=== PATIENT | male | born 1960 | race Caucasian/White ===

== ENCOUNTER → 2018-03-03 | Outpatient (CLI) | payer BC ==
[~2018-03-03] MED LIST: MULT-506 PO; PANT40TA PO
[2018-03-03 10:25] LABS: ALKALINE PHOSPHATASE 52 U/L (45-117); ALT/SGPT 26 U/L (12-78); AST/SGOT 18 U/L (15-37); BLOOD UREA NITROGEN 28 mg/dl (7-18); CALCIUM 8.4 mg/dl (8.5-10.1); CARBON DIOXIDE 27 mmol/L (21-32); CHOLESTEROL 203 mg/dl (0-200); CREATININE 1.05 mg/dl (0.60-1.40); GLUCOSE 85 mg/dl (70-99); LDL CHOLESTEROL CALCULATED 130 mg/dl; POTASSIUM 4.5 mmol/L (3.5-5.1); SODIUM 138 mmol/L (136-145)
[2018-03-03 10:32] LABS: HEMOGLOBIN A1C 5.6 % (4.5-5.6)
== END | disposition home or self-care (01) ==
LOC: C.LAB 07:39
PROVIDERS: ATTEND Urology
DX: N40.1 Benign prostatic hyperplasia with lower urinary tract symptoms (principal); R35.1 Nocturia

== ENCOUNTER → 2018-03-08 | Outpatient (CLI) | payer BC ==
--- NOTE | 2018-03-08 08:55 | DIAGNOSTIC IMAGING REPORT ---
ULTRASOUND KIDNEYS AND BLADDER CLINICAL HISTORY: Renal cyst. COMPARISON STUDY: Abdominal CT dated 06/12/2013. TECHNIQUE: Real-time, grayscale, and color flow sonography of the kidneys and bladder is performed. Images are reviewed in the transverse and longitudinal planes. FINDINGS: Kidneys: The kidneys are normal in size and echotexture. The right kidney measures 11.2 cm in length and the left kidney measures 11.8 cm in length. There is no hydronephrosis. No shadowing renal calculi are identified. There is a 1.7 cm cyst identified in the interpolar right kidney. There is no sonographic evidence of contour deforming renal mass lesion. No perinephric fluid is identified. Bladder: The bladder is normal in appearance. Bilateral ureteral jets were seen. IMPRESSION: 1. The kidneys are normal in size and without hydronephrosis. 2. The bladder is normal as imaged. 3. There is a 1.7 cm cyst in the interpolar right kidney. This was also seen on the [address] Electronically signed by: Enrico Mejía M.D. 03/08/2018 8:54 AM Dictated Date/Time: 03/08/2018 8:40 AM
== END | disposition home or self-care (01) ==
LOC: C.ULTR 08:05
PROVIDERS: ATTEND Urology
DX: N28.1 Cyst of kidney, acquired (principal)

== ENCOUNTER 2020-07-28 21:38 | Observation (INO) ==
[2020-07-28] MEDS ORDERED: SODIUM CHLORIDE 0.9% 1000ML 1,000 ML IV SCH (22:00)
--- NOTE | 2020-07-28 22:04 | Emergency Department Note ---
History of Present Illness General Chief complaint: Vertigo Stated complaint: PASSED OUT - HIT HEAD Time Seen by Provider: 07/28/20 21:44 Source: patient Mode of arrival: ambulatory Limitations: no limitations History of Present Illness This patient is a 60-year-old male who comes in after a syncopal episode. He said he did eat a big meal and had a small glass of wine. Watching TV when up to get go to the bathroom and passed out prior to going to the bathroom. He hit his head on the left frontal area but denies any significant headache. He denies any symptoms prior to falling but was diaphoretic afterwards. He had no recent illness. No chest pain or shortness of breath. Denies headache or neck pain. No numbness or weakness. No abdominal pain. No blood or melena in his stool. He did take a Hytrin this afternoon which he takes from time to time. Home Medications Medication Instructions Recorded Confirmed Type alfuzosin 10 mg tablet,extended 10 mg PO DAILY #30 tab 05/22/19 07/28/20 Rx release 24 hr losartan 50 mg PO DAILY 07/28/20 07/28/20 History metoprolol succinate 12.5 mg PO DAILY 07/28/20 07/28/20 History multivitamin 1 tab PO DAILY 07/28/20 07/28/20 History Allergies Allergy/AdvReac Type Severity Reaction Status Date / Time No Known Allergies Allergy Mild Unverified 07/28/20 23:19 Past Med/Surg History Social History Smoking Status: Never smoker Preferred Language: Greek Feels Safe at Home: Yes Immunizations: Past medical historyPACs/PVCs follows with Dr. Seun Willingham. Hypertension. Denies diabetes. He recently ran out of his omeprazole that he takes for GERD. 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 Review of Systems A total of 10 systems reviewed and were otherwise negative Physical Exam Vital Signs Vital Signs - 24 hr 07/28/20 21:40 07/28/20 21:58 07/28/20 22:39 Temperature 36.9 C Temperature Source Oral Pulse Rate 89 Pulse Rate [Apical] 75 Respiratory Rate 18 18 Respiratory Effort / Characteristics Non-Labored Respiratory Depth Normal Normal Blood Pressure 144/89 H Blood Pressure [Right Arm] 118/81 Blood Pressure Mean 107 Blood Pressure Mean [Right Arm] 93 Pulse Oximetry 97 98 Oxygen Delivery Method Room Air Room Air Room Air Sepsis Recent Fever Within 48 Hours No Sepsis New/Unexplained Change in Mental Status N/A Sepsis Action Taken by Nursing No Action Required General: Well developed well nourished middle-age male who is alert and orient x3 with normal speech and appears in no acute distress, breathing comfortably on room air. HEENT: Normal cephalic atraumatic. Pupils are equal round and reactive to light. Extraocular movements are intact. Oropharynx is pink with moist mucous membranes. No swelling of the mouth lips or tongue. Neck: Supple with a midline trachea. No meningeal signs or stiffness, no JVD or bruits. No Stridor. Chest: Clear to auscultation bilaterally. No wheezes or rhonchi. No increased work of breathing. Heart: Regular rate and rhythm without murmurs or gallops. Abdomen: Soft nontender, nondistended without rebound guarding or rigidity. Extremities: No cyanosis clubbing or edema. No calf tenderness or assymetry Spine/Back. Non tender to palpation. No CVA tenderness Skin: Good turgor without rashes. Neurologic exam: Cranial nerves two through 12 are intact. Motor and sensation are intact and symmetrical throughout. No tremor. Finger-nose intact. No pronator drift. Course Administered Medications Discontinued Medications Sodium Chloride (Nss 1000ml) 1,000 mls @ 999 mls/hr IV .Q1H1M [facility] Stop: 07/28/20 23:00 Last Infusion: 07/28/20 23:22 Dose: 0 mls/hr Documented by: [id number] Admin: 07/28/20 22:11 Dose: 999 mls/hr Documented by: [id number] Medical Decision Making Differential Diagnosis Syncope, arrhythmia, vasovagal, electrolyte or metabolic abnormality, dehydration, trauma, neurologic process, anemia, Covid Medical Records Attestation: I reviewed the patient's medical records. Home Medications Current Medication List: was personally reviewed by me Laboratory Data Attestation: I reviewed the patient's lab results. Result diagrams: 07/28/20 22:05 07/28/20 22:05 Lab Results 07/28/20 07/28/2020 Range/Units 22:05 22:05 22:45 WBC 8.96 (4.8-10.8) K/uL RBC 4.72 (4.7-6.1) M/uL Hgb 15.1 (14.0-18.0) g/dL Hct 44.3 (42-52) % MCV 93.9 (80-100) fL MCH 32.0 (25-34) pg MCHC 34.1 (32-36) g/dL RDW Std Deviation 46.3 (36.4-46.3) fL RDW Coeff of Shaneka 13.4 (11.5-14.5) % Plt Count 282 (130-400) K/uL MPV 9.2 (7.4-10.4) fL Immature Gran % (Auto) 0.1 % Neut % (Auto) 78.1 % Lymph % (Auto) 17.0 % Tillman % (Auto) 3.7 % Eos % (Auto) 1.0 % Baso % (Auto) 0.1 % Neut # (Auto) 7.00 H (1.4-6.5) K/uL Lymph # (Auto) 1.52 (1.2-3.4) K/uL Tillman # (Auto) 0.33 (0.11-0.59) K/uL Eos # (Auto) 0.09 (0-0.5) K/uL Baso # (Auto) 0.01 (0-0.2) K/uL Immature Gran # (Auto) 0.01 (0.00-0.02) K/uL Sodium 140 (136-145) mmol/L Potassium 4.2 (3.5-5.1) mmol/L Chloride 105 (98-107) mmol/L Carbon Dioxide 27 (21-32) mmol/L Anion Gap 8.0 (3-11) BUN 36 H (7-18) mg/dl Creatinine 1.45 H (0.6-1.4) mg/dl Est Cr Clr Drug Dosing 63.5 ml/min Est GFR ( Amer) 59.8 Est GFR (Non-Af Amer) 51.6 BUN/Creatinine Ratio 24.6 H (10-20) Glucose 114 H (70-99) mg/dl Calcium 9.2 (8.5-10.1) mg/dl Magnesium 2.0 (1.8-2.4) mg/dl Total Bilirubin 0.4 (0.2-1) mg/dl AST 25 (15-37) U/L ALT 39 (12-78) U/L Alkaline Phosphatase 67 (45-117) U/L Troponin I < 0.015 (0-0.045) ng/ml Total Protein 7.6 (6.4-8.2) gm/dl Albumin 4.0 (3.4-5.0) gm/dl Globulin 3.6 (2.5-4.0) gm/dl Albumin/Globulin Ratio 1.1 (0.9-2) TSH 1.900 (0.300-4.500) uIu/ml Urine Color Yellow Urine Appearance Clear (Clear) Urine pH 7.5 (4.5-7.5) Ur Specific Shafter 1.024 (1.000-1.030) Urine Protein Negative (Negative) Urine Glucose (UA) Negative (Negative) Urine Ketones Trace H (Negative) Urine Blood Negative (Negative) Urine Nitrite Negative (Negative) Urine Bilirubin Negative (Negative) Urine Urobilinogen Negative (Negative) Ur Leukocyte Esterase Negative (Negative) SARS-CoV-2 Ag (Rapid) (Negative) 07/29/20 Range/Units 00:04 WBC (4.8-10.8) K/uL RBC (4.7-6.1) M/uL Hgb (14.0-18.0) g/dL Hct (42-52) % MCV (80-100) fL MCH (25-34) pg MCHC (32-36) g/dL RDW Std Deviation (36.4-46.3) fL RDW Coeff of Shaneka (11.5-14.5) % Plt Count (130-400) K/uL MPV (7.4-10.4) fL Immature Gran % (Auto) % Neut % (Auto) % Lymph % (Auto) % Tillman % (Auto) % Eos % (Auto) % Baso % (Auto) % Neut # (Auto) (1.4-6.5) K/uL Lymph # (Auto) (1.2-3.4) K/uL Tillman # (Auto) (0.11-0.59) K/uL Eos # (Auto) (0-0.5) K/uL Baso # (Auto) (0-0.2) K/uL Immature Gran # (Auto) (0.00-0.02) K/uL Sodium (136-145) mmol/L Potassium (3.5-5.1) mmol/L Chloride (98-107) mmol/L Carbon Dioxide (21-32) mmol/L Anion Gap (3-11) BUN (7-18) mg/dl Creatinine (0.6-1.4) mg/dl Est Cr Clr Drug Dosing ml/min Est GFR ( Amer) Est GFR (Non-Af Amer) BUN/Creatinine Ratio (10-20) Glucose (70-99) mg/dl Calcium (8.5-10.1) mg/dl Magnesium (1.8-2.4) mg/dl Total Bilirubin (0.2-1) mg/dl AST (15-37) U/L ALT (12-78) U/L Alkaline Phosphatase (45-117) U/L Troponin I (0-0.045) ng/ml Total Protein (6.4-8.2) gm/dl Albumin (3.4-5.0) gm/dl Globulin (2.5-4.0) gm/dl Albumin/Globulin Ratio (0.9-2) TSH (0.300-4.500) uIu/ml Urine Color Urine Appearance (Clear) Urine pH (4.5-7.5) Ur Specific Shafter (1.000-1.030) Urine Protein (Negative) Urine Glucose (UA) (Negative) Urine Ketones (Negative) Urine Blood (Negative) Urine Nitrite (Negative) Urine Bilirubin (Negative) Urine Urobilinogen (Negative) Ur Leukocyte Esterase (Negative) SARS-CoV-2 Ag (Rapid) Negative (Negative) Imaging Data Attestation: I personally reviewed and interpreted this imaging study as follows: My Impression: Chest x-rayno acute infiltrate, failure, pneumothorax. There is some cardiomegaly. Radiologist's Impression: Head CTno intracranial hemorrhage or depressed skull fracture. Paranasal nasal sinus disease ECG Data Attestation: I personally reviewed and interpreted this ECG as follows: Indication: + syncope Rate (beats per minute): 83 Rhythm: + normal sinus ECG Intervals/blocks: + Normal QRS, + Normal QT and + Normal [place] ECG [place]: + Normal ECG ST segments: + Normal ST segments ECG Findings: no PACs and no PVCs Comparison ECG Date: from (09/16/18) Change: no significant change MDM Narrative This patient comes in as described above. He had a syncopal episode in the bathroom. IV access was established and he was hydrated with a 1 L IV normal saline bolus. He feels better at present. EKG was obtained as well as chest x- ray and head CT. Multiple blood testing was obtained he was reassessed frequently. He has no fever white count discussed infection there is no anemia. EKG does not suggest acute coronary syndrome or arrhythmia. There is nothing to suggest Brugada syndrome or prolonged QT interval. There is nothing to suggest hypertrophic cardiomyopathy or ischemia or heart block. His BUN and creatinine are mildly elevated and it could be that this is prerenal as he does have some ketones. He also tells me that he was on a liquid diet a couple weeks ago for presumed diverticulitis. He may have been dehydrated and also the Hytrin use that may have caused in the pass out. He was hydrated here. I do think he needs to be admitted/observe for further cardiac evaluation. I have consulted Dr. Knight to see him in the ER for these measures. Continuous cardiac monitoring: An order was placed in the EMR for continuous cardiac monitoring. He was noted to have normal sinus rhythm with a rate of 89. Impression & Plan Syncope, Dehydration, COVID-19 ruled out by laboratory testing, Acute renal insufficiency Discharge Plan Visit Data Chief Complaint: Vertigo Stated Complaint: PASSED OUT - HIT HEAD ED Provider: Ivan Chau Discharge Problem: Syncope, Dehydration, COVID-19 ruled out by laboratory testing, Acute renal insufficiency Forms Stand Alone Forms: My [facility] [employer] Prescriptions Prescriptions: No Action alfuzosin 10 mg tablet extended release 24 hr 10 mg PO DAILY Qty: 30 RF: 11 losartan 25 mg tablet 50 mg PO DAILY RF: 0 metoprolol succinate 25 mg tablet extended release 24 hr 12.5 mg PO DAILY RF: 0 multivitamin Tablet 1 tab PO DAILY RF: 0 Discharge Problem: Syncope Qualifiers: Syncope type: unspecified Qualified Code(s): R55 - Syncope and collapse
[2020-07-28 22:17] LABS: Basophils # (auto) 0.01 K/uL (0-0.2); Basophils % (auto) 0.1 %; Eosinophils # (auto) 0.09 K/uL (0-0.5); Hematocrit (blood only) 44.3 % (42-52); Hemoglobin 15.1 g/dL (14.0-18.0); Immature Granulocytes # (auto) 0.01 K/uL (0.00-0.02); Immature Granulocytes % (auto) 0.1 %; Lymphocytes # (auto) 1.52 K/uL (1.2-3.4); Mean Corpuscular Hgb Conc 34.1 g/dL (32-36); Mean Corpuscular Volume 93.9 fL (80-100); Mean Platelet Volume 9.2 fL (7.4-10.4); Monocytes # (auto) 0.33 K/uL (0.11-0.59); Monocytes % (auto) 3.7 %; Neutrophils % (auto) 78.1 %; Platelet Count 282 K/uL (130-400); RDW Coefficient of Variation 13.4 % (11.5-14.5); RDW Standard Deviation 46.3 fL (36.4-46.3); Red Blood Count 4.72 M/uL (4.7-6.1); White Blood Count 8.96 K/uL (4.8-10.8)
[2020-07-28 22:36] LABS: Alanine Aminotransferase 39 U/L (12-78); Aspartate Aminotransferase 25 U/L (15-37); BUN Creatinine Ratio 24.6 (10-20); Blood Urea Nitrogen 36 mg/dl (7-18); Calcium 9.2 mg/dl (8.5-10.1); Carbon Dioxide 27 mmol/L (21-32); Chloride 105 mmol/L (98-107); Creatinine Clr Calc Pharmacy 63.5 ml/min; Est GFR (African American) 59.8; Est GFR (Non-African American) 51.6; Glucose 114 mg/dl (70-99); Potassium 4.2 mmol/L (3.5-5.1); Sodium 140 mmol/L (136-145)
[2020-07-28 22:47] LABS: Albumin Globulin Ratio 1.1 (0.9-2); Alkaline Phosphatase 67 U/L (45-117); Bilirubin,Total 0.4 mg/dl (0.2-1); Globulin 3.6 gm/dl (2.5-4.0); Total Protein 7.6 gm/dl (6.4-8.2); Troponin I < 0.015 ng/ml (0-0.045)
[2020-07-28 23:00] LABS: Appearance Urine Clear (Clear); Bilirubin Urine Negative (Negative); Blood Urine Negative (Negative); Color Urine Yellow; Glucose Urine UA Negative (Negative); Ketones Urine Trace (Negative); Leukocyte Esterase Urine Negative (Negative); Nitrite Urine Negative (Negative); Protein Urine Negative (Negative); Specific Gravity Urine 1.024 (1.000-1.030); Urobilinogen Urine Negative (Negative); pH Urine 7.5 (4.5-7.5)
[2020-07-29] MEDS ORDERED: ACETAMINOPHEN 325 MG TAB PO PRN ×2 (02:06→08:03)
[2020-07-29] MEDS ORDERED: SODIUM CHLORIDE 0.9% 1000ML 1,000 ML IV SCH (02:06)
[2020-07-29] MEDS ORDERED: NITROGLYCERIN SL 0.4 MG/TAB TAB SL PRN (02:06)
--- NOTE | 2020-07-29 02:31 | History and Physical Report ---
DATE OF ADMISSION: 07/29/2020 CHIEF COMPLAINT: Syncope. HISTORY OF PRESENT ILLNESS: A 60-year-old male with past medical history significant for hypertension, history of PACs, history of right renal cyst, history of chronic back pain, history of diverticulitis of colon, who presents with episode of syncope. The patient had dinner and also a glass of wine and went to bathroom, suddenly collapsed. Next, he was found on the floor, hit on the left side of his forehead, was sweating. No biting of tongue, no incontinence. Checked his pulse, was somewhat low, on his phone; checked his EKG, it looked okay. He has never had an episode of syncope in the past, so came to the hospital for evaluation, workup is negative so far. The patient states he had an episode of diverticulitis about a month ago and he was treated with oral antibiotics for 1 week and was eating only liquid diet and only 1 week ago he started to go back on his regular diet. He takes alpha-1 julia alfuzosin for his BPH once in a while. He did not take it for last 1 month since diverticulitis and he took 1 dose today afternoon. Currently resting comfortably and hemodynamically stable. Denies any chest pain. No shortness of breath, no cough, no fever, no chills. Currently, no headache, no blurred visions, no earache, no runny nose, no sore throat, no loss of sense of smell or taste. No dysphagia, no nausea, no abdominal pain. Normal bowel and bladder movements. No swelling in the legs, no rash. ALLERGIES: No known drug allergies. PAST MEDICAL HISTORY: As mentioned above. PAST SURGICAL HISTORY: Tonsillectomy. MEDICATIONS: The patient is on losartan 50 mg p.o. daily, Toprol-XL 12.5 mg p.o. daily, multivitamin 1 tablet daily, alfuzosin 10 mg p.o. daily. FAMILY HISTORY: Significant for mother has heart disease; father has hypertension and bladder cancer; mother has hypertension. SOCIAL HISTORY: . No smoking. Alcohol 6 glasses of red wine per week. No drug use. REVIEW OF SYSTEMS: As per HPI. Rest of the review of systems negative. PHYSICAL EXAMINATION: GENERAL: The patient is of moderate build, not in acute distress. VITAL SIGNS: Temperature 36.9, pulse 75, respiratory rate 18, blood pressure 118/81, oxygen 98% on room air. HEENT: Pupils equal, round, reactive to light. Oral mucosa moist. NECK: No JVD, no neck masses, no carotid bruits. CARDIOVASCULAR: S1, S2 heard, regular rate and rhythm, no murmur, no gallop. RESPIRATORY SYSTEM: Normal AP diameter. No accessory muscle use. No wheezing, no crackles. ABDOMEN: Soft, bowel sounds present, nontender, no distention. CENTRAL NERVOUS SYSTEM: Cranial nerves II-XII grossly intact, nonfocal. EXTREMITIES: No edema, no erythema. LABORATORY DATA: WBC 8.9, hemoglobin 15.1, hematocrit 44.3, platelets 282. Sodium 140, potassium 4.2, chloride 105, bicarbonate 27, BUN 36, creatinine 1.45, serum glucose 114, calcium 9.2, magnesium 2, total bilirubin 0.4, AST 25, ALT 39, alkaline phosphatase 67. Troponin I less than 0.015. TSH 1.9. Urinalysis, trace ketones. SARS-CoV-2 rapid antigen test negative. IMAGING: CT of the head, preliminary report, no acute findings. Chest x-ray, no acute findings. EKG: Normal sinus rhythm, rate of 83, Q-waves in inferior leads. ASSESSMENT AND PLAN: This 60-year-old male presents with syncope. 1. Syncope, could be vasovagal, could be from dehydration and taking of alfuzosin. EKG and troponins are unremarkable. We will monitor in the tele floor for any dysrhythmias. No seizure activity. We will follow serial enzymes, echocardiogram, and consult cardiology in a.m. for further recommendations. Will start on fluids. 2. Acute kidney injury: Presently with creatinine of 1.45, BUN 36, baseline creatinine seems to be around 1, most likely secondary to dehydration. The patient recently had diverticulitis and was eating liquid diet only, started taking regular diet about 1 week ago. Getting fluids. We will follow the labs in a.m. Hold losartan. 3. Hypertension: Continue metoprolol succinate with holding parameters. Holding losartan. Will follow blood pressure. 4. History of PACs: On Toprol-XL. 5. History of benign prostatic hypertrophy: Follows with urology. Takes alfuzosin as needed, will hold it for now. 6. Deep vein thrombosis prophylaxis: Sequential compression devices. DISPOSITION: Closely monitor, observation in med tele. Level 1 full code. Expect to discharge home and follow with family doctor. MICHELLE
[2020-07-29 05:18] LABS: Basophils # (auto) 0.01 K/uL (0-0.2); Basophils % (auto) 0.1 %; Eosinophils # (auto) 0.09 K/uL (0-0.5); Eosinophils % (auto) 1.3 %; Hematocrit (blood only) 40.3 % (42-52); Hemoglobin 13.5 g/dL (14.0-18.0); Immature Granulocytes # (auto) 0.01 K/uL (0.00-0.02); Immature Granulocytes % (auto) 0.1 %; Lymphocytes # (auto) 1.71 K/uL (1.2-3.4); Mean Corpuscular Hemoglobin 31.5 pg (25-34); Mean Corpuscular Hgb Conc 33.5 g/dL (32-36); Mean Corpuscular Volume 93.9 fL (80-100); Mean Platelet Volume 8.9 fL (7.4-10.4); Monocytes # (auto) 0.47 K/uL (0.11-0.59); Monocytes % (auto) 6.9 %; Neutrophils # (auto) 4.54 K/uL (1.4-6.5); Neutrophils % (auto) 66.6 %; Platelet Count 268 K/uL (130-400); RDW Coefficient of Variation 13.5 % (11.5-14.5); RDW Standard Deviation 46.3 fL (36.4-46.3); Red Blood Count 4.29 M/uL (4.7-6.1); White Blood Count 6.83 K/uL (4.8-10.8)
[2020-07-29 05:42] LABS: BUN Creatinine Ratio 26.2 (10-20); Calcium 8.2 mg/dl (8.5-10.1); Creatinine Clr Calc Pharmacy 83.7 ml/min; Est GFR (African American) 83.5; Est GFR (Non-African American) 72.1; Magnesium 2.2 mg/dl (1.8-2.4); Potassium 4.3 mmol/L (3.5-5.1)
--- NOTE | 2020-07-29 06:50 | CT Scan Report ---
CT head/brain wo con CLINICAL HISTORY: 60 years-old Male with syncope. Acute syncope TECHNIQUE: Multiple axial CT images of the head were obtained without contrast. A dose lowering tech nique was utilized adhering to the principles of ALARA. CT DOSE: 614.27 mGy.cm COMPARISON: None. FINDINGS: No acute intracranial hemorrhage, midline shift, intracranial mass, hydrocephalus, territorial ischem ia or abnormal extra-axial collection. The calvarium is intact. Mild to moderate mucosal thickening of the ethmoid air cells with partially imaged mucosal thickening of the inferior right maxillary sinus. Mastoid air cells are clear. IMPRESSION: No acute intracranial abnormality. ACT 112: Negative or not required by law. The above report was generated using voice recognition software. It may contain grammatical, syntax o r spelling errors. Electronically signed by: Lam Rubi M.D. 07/29/2020 6:49 AM
--- NOTE | 2020-07-29 07:45 | XRay Report ---
XR chest 1V portable HISTORY: syncope COMPARISON: Chest 09/16/2008. FINDINGS: The lungs are clear. Cardiac silhouette is normal in size. No pleural effusions. No pneumot horax. Moderate degenerative changes within the left shoulder. IMPRESSION: No acute process. ACT 112: Negative or not required by law. Electronically signed by: Teofilo Rodriguez M.D. 07/29/2020 7:44 AM
--- NOTE | 2020-07-29 08:38 | Hospitalist Progress Note ---
Date of Service July 29, 2020 Assessment & Plan (1) Syncope: Acute Kidney Injury on admission secondary to dehydration -as per ED notes on 07/28/2020 "patient is a 60-year-old male who comes in after a syncopal episode. He said he did eat a big meal and had a small glass of wine. Watching TV when up to get go to the bathroom and passed out prior to going to the bathroom. He hit his head on the left frontal area but denies any significant headache. He denies any symptoms prior to falling but was diaphoretic afterwards. He had no recent illness. No chest pain or shortness of breath. Denies headache or neck pain. No numbness or weakness. No abdominal pain. No blood or melena in his stool. He did take a Hytrin this afternoon which he takes from time to time." -admission creatinine of 1.45 and BUN 36 suggests dehydration at home. after IV fluids from ED presentation and into 07/03/2020 morning the creatinine 1.1 and BUN 29 by AM labs -patient can be monitored off IV fluids while in the hospital for now Hypertension -admitting physician have held off losartan 50 mg so far. Holding losartan today appears to be reasonable after recent syncopal event. After discussing with patient about back blood pressure medication going forward, he would prefer taking 25 mg losartan daily and self monitor blood pressure and follow with primary care doctor History of PACs -on metoprolol 12.5 mg daily -echocardiogram has been performed on 07/29/2020 in regards to the syncope workup, follow cardiology service evaluation Benign prostatic hypertrophy -admitting physician have held off this medication for now. again this is a reasonable step the day after syncope a home. can consider consider resuming this home medication subsequently and have patient either self monitor as outpatient and follow up with primary care physician or urologist Admission and Anticipated Discharge Date Admission Date: July 29, 2020 Subjective On exam, patient is alert and oriented. No current symptoms of dizziness or acute headache. No apparent bruising of the head. no vertigo symptoms. no nausea. no vomiting. afebrile. no chest pain. no abdomen pain. no other current symptoms on review of systems Review of Systems Review of Systems: All systems reviewed & are unremarkable except as noted in Subjective Physical Exam Constitutional: comfortable Eyes: PERRL, conjunctivae normal, anicteric sclerae EOM intact bilaterally ENMT: external ear and nose normal, oropharynx normal Neck: normal visual inspection Respiratory: normal respiratory effort, lungs clear to auscultation Cardiovascular: Rate/Rhythm: regular rhythm Gastrointestinal (Abdomen): normal bowel sounds, soft, nontender, no hepatosplenomegaly Musculoskeletal: Head/Neck/Chest: normocephalic and head atraumatic Neurologic: PERRL, EOMI, accommodation nl, no face palsy, no dysarthria CN' s II-XI intact bilaterally and moves all extremities Psychiatric: A+Ox3, euthymic affect Results & Data Results & Data ([facility]) Vital Signs (Past 12 Hours) Vital Signs Temp Pulse Pulse Resp BP BP Pulse Ox 07/29/20 02:52 78 07/29/20 02:31 36.9 C 75 21 137/89 97 07/29/20 01:45 72 18 119/70 98 07/29/20 01:44 36.9 C 76 15 119/70 97 07/29/20 01:00 78 18 129/82 98 07/28/20 22:39 75 18 118/81 98 07/28/20 21:40 36.9 C 89 18 144/89 H 97 (1) Syncope Syncope type: unspecified Qualified Code(s): R55 - Syncope and collapse
--- NOTE | 2020-07-29 08:48 | Cardiology Consultation ---
Date of Consultation July 29, 2020 Assessment & Plan (1) Syncope: (2) Dehydration: (3) Acute renal insufficiency: 60-year-old patient presents for evaluation of syncope. Suspect syncopal episode related to hypotension in the setting of volume depletion, mild alcohol intake, and use of Hytrin. 2D echocardiogram reveals preserved LV systolic function with normal wall motion. Stable mild mitral regurgitation noted. No sustained dysrhythmias on telemetry overnight. Encourage patient to maintain adequate hydration. He will only use Hytrin in the evenings. Avoid NSAID use. 14-day outpatient ZIO monitor ordered. Cardiology follow-up in 2-3 weeks. History of Present Illness Reason for Consultation: Syncope Requesting Physician: Dr. Knight Attending Physician: Shamir Rose MD History of Present Illness 60-year-old patient admitted with syncope. History of hypertension, premature atrial complexes, borderline mitral valve prolapse with mild mitral regurgitation, and BPH. Preliminary review of bedside 2D transthoracic echocardiogram demonstrates pr eserved LV systolic function, no regional wall motion abnormalities, mild mitral regurgitation with mild diastolic dysfunction. Reports syncopal episode occurring last evening. Patient had been working all day at his cabin. Sanding and staying the floor. Drank 1 beer after completing the task. Then ate a large meal with 1 glass of wine. Admits to taking dose of Hytrin in the a.m. due to concerns regarding urinary frequency wall working throughout the day. This is unusual for him. He had not taken a dose of Hytrin in nearly 30 days. Reports recent episode of diverticulitis 1 month ago prompting soft/liquid diet for more than 1 week. In the evening, patient had dozed off while watching a football game. He awoke and stood up to use the bathroom. He does not recall any lightheadedness, dizziness, chest discomfort, or palpitations. He woke up on the floor of his bathroom. Struck the left side of his forehead without significant contusion or abrasion. Upon awakening, patient assessed his heart rhythm via "[employer]" and checked blood pressure. Heart rhythm was sinus with PVCs. Blood pressure approximately 105 / 70s. Mild diaphoresis involving his forearms noted. Denies incontinence, tongue biting, or postictal state. The event was not witnessed. Denies prior history of syncope. No recent exertional chest discomfort, palpitations, unusual shortness of breath, or decline in functional capacity. Patient evaluated in the ER. ECG unchanged. Lab testing suggests volume depletion. No dysrhythmias on telemetry overnight. Allergies Allergy/AdvReac Type Severity Reaction Status Date / Time No Known Allergies Allergy Mild Unverified 07/28/20 23:19 Home Medications Medication Instructions Recorded Confirmed Type metoprolol succinate 12.5 mg PO DAILY 07/28/20 07/28/20 History multivitamin 1 tab PO DAILY 07/28/20 07/28/20 History losartan 25 mg PO DAILY 30 Days #30 tab 07/29/20 Rx tamsulosin 0.4 mg PO DAILY 30 Days #30 cap 07/29/20 Rx Patient History Social History Smoking Status: Never smoker Hx Alcohol Use: Yes Alcohol type: wine Hx Substance Use: No Preferred Language: Uzbek Communication Ability: Effective Coal Bagger Required: No Beliefs That Will Affect Care: None Current Living Situation: Spouse Other Information That Helps Us Care for You: No Feels Safe at Home: Yes Safety Concerns: Feels Safe At This Time Assistive Devices: None Review of Systems Review of Systems: All systems reviewed & are unremarkable except as noted in HPI & below Physical Exam Constitutional: well developed and well nourished; no acute distress and not ill appearing Respiratory: normal respiratory effort, lungs clear to auscultation Au scultation: no crackles, no rales, no rhonchi and no wheezes Cardiovascular: Rate/Rhythm: regular rate and regular rhythm Heart Sounds: normal S1, normal S2 and + murmur (soft, 1/6 midsystolic murmur heard best at the left ventricular apex) Vessels: no JVD and no carotid bruit Extremities: no edema Gastrointestinal (Abdomen): Inspection/Auscultation: abdomen normal to insp ection and normal bowel sounds; abdomen not distended Percussion/Palpation: abdomen soft; abdomen nontender, no guarding and abdomen not rigid Skin: no rashes, warm and dry Neurologic: CN's II-XI intact bilaterally and moves all extremities; no focal motor deficits Motor/Sensory: no tremor Psychiatric: A+Ox3, euthymic affect Results & Data ([facility]) Vital Signs (Past 12 Hours) Vital Signs Temp Pulse Pulse Resp BP BP Pulse Ox 07/29/20 02:52 78 07/29/20 02:31 36.9 C 75 21 137/89 97 07/29/20 01:45 72 18 119/70 98 07/29/20 01:44 36.9 C 76 15 119/70 97 07/29/20 01:00 78 18 129/82 98 07/28/20 22:39 75 18 118/81 98 07/28/20 21:40 36.9 C 89 18 144/89 H 97 Diagnostic Findings Exercise stress echo report summary 09/13/2018: The stress echo is negative for inducible ischemia. Exercise capacity is above average . Resting Study: The qualitative LV ejection fraction is 55-59% (normal). The left ventricular diastolic function is mildly abnormal (grade I). There is borderline posterior mitral leaflet prolapse. Mild mitral regurgitation is present. The aortic root is borderline enlarged. (1) Syncope Syncope type: unspecified Qualified Code(s): R55 - Syncope and collapse
[2020-07-29] MEDS ORDERED: MULTIVITAMIN TAB PO SCH (09:00)
[2020-07-29] MEDS ORDERED: PANTOprazole 40 MG TAB PO SCH (09:00)
[2020-07-29] MEDS ORDERED: METOPROLOL SUCC 25MG EXT REL TAB PO SCH (09:00)
[2020-07-29] MEDS ORDERED: LOSARTAN POTASSIUM 50 MG TAB PO SCH (09:00)
--- NOTE | 2020-07-29 10:09 | Discharge Summary ---
Date of Service July 29, 2020 Admission HPI Per Admitting Provider HISTORY OF PRESENT ILLNESS: A 60-year-old male with past medical history significant for hypertension, history of PACs, history of right renal cyst, history of chronic back pain, history of diverticulitis of colon, who presents with episode of syncope. The patient had dinner and also a glass of wine and went to bathroom, suddenly collapsed. Next, he was found on the floor, hit on the left side of his forehead, was sweating. No biting of tongue, no incontinence. Checked his pulse, was somewhat low, on his phone; checked his EKG, it looked okay. He has never had an episode of syncope in the past, so came to the hospital for evaluation, workup is negative so far. The patient states he had an episode of diverticulitis about a month ago and he was treated with oral antibiotics for 1 week and was eating only liquid diet and only 1 week ago he started to go back on his regular diet. He takes alpha-1 julia alfuzosin for his BPH once in a while. He did not take it for last 1 month since diverticulitis and he took 1 dose today afternoon. Currently resting comfortably and hemodynamically stable. Denies any chest pain. No shortness of breath, no cough, no fever, no chills. Currently, no headache, no blurred visions, no earache, no runny nose, no sore throat, no loss of sense of smell or taste. No dysphagia, no nausea, no abdominal pain. Normal bowel and bladder movements. No swelling in the legs, no rash. Principal Diagnosis Syncope Acute Kidney Injury on admission secondary to dehydration Hypertension benign prostatic hypertrophy Discharge Exam Constitutional comfortable Eyes PERRL, conjunctivae normal, anicteric sclerae EOM intact bilaterally ENMT external ear and nose normal, oropharynx normal Neck normal visual inspection Respiratory normal respiratory effort, lungs clear to auscultation Cardiovascular Rate/Rhythm: regular rhythm Gastrointestinal (Abdomen) normal bowel sounds, soft, nontender, no hepatosplenomegaly Musculoskeletal Head/Neck/Chest: normocephalic and head atraumatic Neurologic PERRL, EOMI, accommodation nl, no face palsy, no dysarthria CN's II-XI intact bilaterally and moves all extremities Psychiatric A+Ox3, euthymic affect Discharge Data Allergies Allergy/AdvReac Type Severity Reaction Status Date / Time No Known Allergies Allergy Mild Unverified 07/28/20 23:19 Consultations 07/28/20 23:43 ED Decision to Admit Stat 07/29/20 08:00 Consult Cardiology Routine Ordered Studies 07/28/20 21:57 CT head/brain wo con Stat Hospital Course (1) Syncope: Acute Kidney Injury on admission secondary to dehydration -as per ED notes on 07/28/2020 "patient is a 60-year-old male who comes in after a syncopal episode. He said he did eat a big meal and had a small glass of wine. Watching TV when up to get go to the bathroom and passed out prior to going to the bathroom. He hit his head on the left frontal area but denies any significant headache. He denies any symptoms prior to falling but was diaphoretic afterwards. He had no recent illness. No chest pain or shortness of breath. Denies headache or neck pain. No numbness or weakness. No abdominal pain. No blood or melena in his stool. He did take a Hytrin this afternoon which he takes from time to time." -admission creatinine of 1.45 and BUN 36 suggests dehydration at home. after IV fluids from ED presentation and into 07/03/2020 morning the creatinine 1.1 and BUN 29 by AM labs -cardiology service: 2D transthoracic echocardiogram demonstrates preserved LV systolic function, no regional wall motion abnormalities, mild mitral regurgitation with mild diastolic dysfunction -after discussion with cardiology, patient prefers the hospital discharge History of PACs -on metoprolol 12.5 mg daily -echocardiogram has been performed on 07/29/2020 in regards to the syncope workup, follow cardiology service evaluation Hypertension Benign prostatic hypertrophy discharge to home Patient will follow up with outpatient doctor and outpatient ZIO patch discharge medication sent electronically to [facility] [facility] [place] [id number] of lowered dose losartan as 25 mg daily and tamsulosin 0.4 mcg daily to replace the home medication of alfuzosin Total Time Total Time Spent Total Time Spent (In Minutes): 30 Total Time Includes: Examination of the Patient, Discharge Planning, Medication Reconciliation and Communication With Other Providers Discharge Plan Discharge Items Patient Disposition: Home - Self-Care Reason For Visit: SYNCOPE Discharge Diagnosis: Syncope Acute Kidney Injury on admission secondary to dehydration Hypertension benign prostatic hypertrophy Condition on Discharge: Good Activity: Per Instructions section Weightbearing: Full weightbearing Non-emergency contact: Primary Care Provider Call non-emergency contact if: you have any medication questions Follow-up/Referrals: Beau Montanez MD [Primary Care Provider] - Diet: Regular Addtl Attending Provider Instructions: discharge to home Patient will follow up with outpatient doctor and outpatient ZIO patch discharge medication sent electronically to [facility] [place] [address] of lowered dose losartan as 25 mg daily and tamsulosin 0.4 mcg daily to replace the home medication of alfuzosin Pending Studies at Discharge: No Stand-Alone Forms: My [facility] [place] [employer], Smoking Cessation Medications and DC Order Prescriptions: New tamsulosin 0.4 mg capsule 0.4 mg PO DAILY 30 Days Qty: 30 RF: 0 losartan 25 mg tablet 25 mg PO DAILY 30 Days Qty: 30 RF: 0 Continued metoprolol succinate 25 mg tablet extended release 24 hr 12.5 mg PO DAILY RF: 0 multivitamin Tablet 1 tab PO DAILY RF: 0 Discontinued alfuzosin 10 mg tablet extended release 24 hr 10 mg PO DAILY Qty: 30 RF: 11 losartan 25 mg tablet 50 mg PO DAILY RF: 0 Discharge Orders: Discharge Order (Routine); Ordered 07/29/20 Ordered By: Shamir Rose Admission Data Admit Date/Time: 07/29/20 02:02 Attending Provider: Shamir Rose Admit Provider: Barney Knight Primary Care Provider: Beau Montanez Other Providers: Andrea Wagoner ; Federico Odell ; Shane Fernandez ; Seun Willingham ; Andrews Butler ; Donald Henderson ; Garrett Zepeda ; India Alvarez ; Sherly العراقي ; Binh Donaldson
--- NOTE | 2020-07-29 18:29 | Electrocardiogram Report ---
Test Reason : Blood Pressure : / mmHG Vent. Rate : 083 BPM Atrial Rate : 083 BPM P-R Int : 148 ms QRS Dur : 074 ms QT Int : 376 ms P-R-T Axes : 031 -03 032 degrees QTc Int : 441 ms Normal sinus rhythm Inferior infarct , age undetermined Abnormal ECG When compared with ECG of 16-SEP-2008 14:27, Inferior infarct is now Present Confirmed by Trever Marin ([id number]) on 07/29/2020 6:29:03 PM Referred By: REFERRED SELF Confirmed By:Uday aMrin
== END 2020-07-29 10:54 | disposition home or self-care (01) ==
LOC: 1E 21:38 → ED 21:38 → 1E 07-29 01:45 → SUATTDRO 07-29 02:02

== ENCOUNTER 2025-01-27 10:07 | Observation (INO) ==
[2025-01-27 10:39] LABS: Basophils # (auto) 0.02 K/uL (0.00-0.20); Basophils % (auto) 0.5 %; Eosinophils # (auto) 0.15 K/uL (0.00-0.50); Eosinophils % (auto) 3.4 %; Hemoglobin 14.5 g/dl (14.0-18.0); Immature Granulocytes # (auto) 0.01 K/uL (0.01-0.20); Immature Granulocytes % (auto) 0.2 %; Lymphocytes # (auto) 1.58 K/uL (1.20-3.40); Lymphocytes % (auto) 36.1 %; Mean Corpuscular Hemoglobin 31.7 pg (25.0-34.0); Mean Corpuscular Hgb Conc 33.7 g/dL (32.0-36.0); Mean Corpuscular Volume 93.9 fL (80.0-100.0); Mean Platelet Volume 8.9 fL (9.4-12.4); Monocytes # (auto) 0.31 K/uL (0.11-0.59); Monocytes % (auto) 7.1 %; Neutrophils # (auto) 2.31 K/uL (1.40-6.50); Neutrophils % (auto) 52.7 %; Platelet Count 269 K/uL (130-400); RDW Coefficient of Variation 13.1 % (11.5-14.5); RDW Standard Deviation 45.1 fL (36.4-46.3); Red Blood Count 4.58 M/uL (4.70-6.10); White Blood Count 4.38 K/ul (4.8-10.8)
[2025-01-27] MEDS: MECLIZINE HCL 25 MG TAB PO STA (10:55)
[2025-01-27] MEDS: SODIUM CHLORIDE 0.9% 500 ML IV ONE (10:55)
[2025-01-27] MEDS: ONDANSETRON INJ 2 MG/ML 2 ML VIAL IV STA ×2 (10:55→12:08)
[2025-01-27 11:01] LABS: Albumin Globulin Ratio 1.5 (0.9-2); BUN Creatinine Ratio 28.4 (10-20); Bilirubin,Total 0.6 mg/dl (0.2-1.0); Creatinine Clr Calc Pharmacy 85.4 ml/min; Globulin 2.8 gm/dl (2.5-4.0); Potassium 4.2 mmol/L (3.5-5.1); Total Protein 6.9 gm/dl (6.0-8.3)
[2025-01-27 11:07] LABS: Troponin I High Sensitivity 6.2 pg/ml (0-20)
[2025-01-27] MEDS: OPTIRAY 320 125ml IV ONE (11:16)
--- NOTE | 2025-01-27 11:55 | CT Scan Report ---
CT angio head wo/w, CT angio neck with con CLINICAL HISTORY: 65 years-old Male with vertigo, vomiting. Acute vertigo with nausea and vomiting COMPARISON STUDY: Head CT 07/28/2020 TECHNIQUE: Unenhanced axial CT scan of the brain is performed. Subsequently, following the IV adminis tration of 117 cc of Optiray, CT angiogram of the head and neck was performed from the skull base to the vertex. Images are reviewed in the axial, sagittal, and coronal planes. 3-D MIPS images are creat ed and assessed. IV contrast was administered without complication. All measurements were obtained ac cording to NASCET criteria. A dose lowering technique was utilized adhering to the principles of WILFRIDO Joe. CT DOSE: 1191.62 mGy.cm FINDINGS: CT BRAIN: There is no acute intracranial hemorrhage, midline shift, hydrocephalus, intracranial mass, territori al ischemia or abnormal extra-axial collections. No abnormal intra-axial or extra-axial enhancement. Mastoid air cells and middle ear cavities are clear. No calvarial fracture. Minimal mucosal thickeni ng of the ethmoid air cells and frontal sinuses. 2.5 cm focus of polypoid mucosal thickening noted wi thin the right maxillary sinus. CT ANGIOGRAM OF THE HEAD AND NECK: Three-vessel morphology of the thoracic aortic arch. Patent common and internal carotid arteries. The re is moderate atherosclerosis of the right carotid bulb without significant stenosis. The internal c arotid arteries are patent. The bilateral anterior and middle cerebral arteries are also patent. Vertebral arteries are patent. Diminutive basilar artery with origin of the right posterior cer ebral artery. There is moderately diminished flow within the P2 segment left posterior cerebral arter y compared to the right without discrete high-grade stenosis identified. There is no aneurysm, high-g rade stenosis, or proximal branch occlusion identified. Dural sinuses appear patent. The lung apices appear clear. 8 mm hyperdense left-sided thyroid nodule. Degenerative changes of the cervical spine. IMPRESSION: 1. No acute intracranial abnormality identified. 2. There is diminished flow within the left posterior cerebral artery P2 segment compared to the righ t without discrete high-grade stenosis or arterial occlusion identified 3. Otherwise unremarkable CTA of the head and neck. ACT 112: Negative or not required by law. The above report was generated using voice recognition software. It may contain grammatical, syntax o r spelling errors. Electronically signed by: Darrius Rubi M.D. 01/27/2025 11:53 AM
[2025-01-27] MEDS: LORazepam 2 MG/1 ML VIAL IV STA (12:07)
[2025-01-27] MEDS: FAMOTIDINE 20MG IV PUSH 20 MG/5 ML SYR IV STA (12:07)
[2025-01-27] MEDS: methylPREDNISolone 125 MG/2 ML VIAL IV STA (12:07)
[2025-01-27] MEDS: SODIUM CHLORIDE 0.9% 1,000 ML IV ONE (12:08)
--- NOTE | 2025-01-27 13:46 | Magnetic Resonance Report ---
MR brain wo con HISTORY: 65 years-old Male P2 segment acute severe vertigo with altered mental status COMPARISON: CTA of the head of same day TECHNIQUE: Multiplanar multisequence MRI of the brain was obtained without IV contrast FINDINGS: No restricted diffusion to suggest an acute or subacute infarct. Midline structures appear unremarkab le. Degenerative changes of the imaged cervical spine. No acute intracranial hemorrhage, midline shif t, abnormal extra-axial collection, hydrocephalus or intra-axial mass. Minimal involutional changes. There are a few scattered punctate T2/FLAIR hyperintense foci within the white matter likely represen ting early chronic microvascular ischemic disease. Cerebral venous sinuses and major arterial flow voids appear patent. Skull, orbits and soft tissues a re unremarkable. Mastoid air cells are clear. Mild to moderate mucosal thickening of the paranasal si nuses. 2.3 cm right maxillary sinus polyp. IMPRESSION: No acute intracranial abnormality. No acute or subacute infarct. ACT 112: Negative or not required by law. The above report was generated using voice recognition software. It may contain grammatical, syntax o r spelling errors. Electronically signed by: Darrius Rubi M.D. 01/27/2025 1:45 PM
--- NOTE | 2025-01-27 14:44 | Emergency Department Note ---
Impression & Plan Benign paroxysmal positional vertigo ED Provider Note CHIEF COMPLAINT: Vertigo HISTORY OF PRESENT ILLNESS: This 65-year-old male patient with past medical history of prostatic hypertrophy, diverticulitis presents emergency department with complaints of sudden onset of dizziness and vomiting. The patient states he was in his usual state of health, sat down to play the piano and had sudden onset of spinning, nausea and vomiting. Patient vomited 4-5 times at home. He was not able to get the symptoms under control. The patient has no history of prior. He denies any recent illnesses. He states he had 2 alcoholic drinks last evening, but did not feel intoxicated. He denies any recent chest pain, shortness of breath. He denies any unilateral weakness, speech difficulties and confusion. REVIEW OF SYSTEMS: A review of systems was performed with positives and pertinent negatives listed in the history of present illness. 10 systems were reviewed and are otherwise negative. ALLERGIES: see below MEDICATIONS: see below PMH: see below SOCIAL HISTORY: see below DDx: Vertigo, intracranial hemorrhage, intracranial mass, dehydration, metabolic abnormality, stroke among others. PHYSICAL EXAM: Vital signs reviewed. General: Well-appearing 65-year-old male, in some discomfort, but no distress. HEENT: No scleral icterus or conjunctival injection, PERRLA, neck supple. Atraumatic. TMs are clear bilaterally. Cardiovascular: Regular rate and rhythm, no extra sounds. Pulmonary: Clear to auscultation bilaterally, normal work of breathing. Abdomen: Soft, nontender, nondistended, positive bowel sounds. Musculoskeletal: Atraumatic, no peripheral edema. Neurologic: Patient awake alert and oriented x 3, speech is clear. Equal strength in all 4 extremities, negative pronator drift, intact [id number]. Cranial nerves II through XII are grossly intact. Minimal nystagmus, concern for vertical nystagmus although not reproducible. No horizontal nystagmus appreciated. Skin: Warm, dry, no rash EMERGENCY DEPARTMENT COURSE/MDM: This patient was evaluated and appeared to be in some discomfort. IV access was obtained and laboratory work was drawn. The patient was medicated with 4 mg of IV Zofran and 25 mg of meclizine by mouth. He was hydrated with normal saline solution. EKG reveals no evidence of acute ischemia. CT and CT angiogram were performed of the head and neck and reveals diminished blood flow within the left posterior cerebral artery P2 segment compared with the right without discrete high-grade stenosis or arterial occlusion. On my reevaluation, the patient continued to be symptomatic. He did receive additional IV Zofran, IV Ativan and 60 mg of IV Solu-Medrol. Laboratory work is reassuring, Lyme test is negative. Given his leukopenia, the babesiosis and Anaplasma testing was ordered and is pending. Patient seem to be having significant improvement and was prepared for discharge home. Upon sitting up to get dressed, he promptly vomited and had reoccurrence of symptoms. I discussed the plan with the patient and his , he will be evaluated by the hospitalist service for admission and further management. He is expressed understanding and agrees. MONITORING: An order for cardiac monitoring was placed and the patient is noted to be in a sinus bradycardia at 58 beats per minute. RADIOLOGY: CT/CTA of the head and neck: IMPRESSION: 1. No acute intracranial abnormality identified. 2. There is diminished flow within the left posterior cerebral artery P2 segment compared to the right without discrete high-grade stenosis or arterial occlusion identified 3. Otherwise unremarkable CTA of the head and neck. EKG: To my interpretation reveals a sinus bradycardia at 55 bpm, normal ST segments. QTc of 413. No PAC, no PVC. DISPOSITION: Home Past Med/Surg History Problem List Symptomatic PVCs Nausea & vomiting Benign paroxysmal positional vertigo (Acute) Bilateral inguinal hernia History of diverticulitis Left lower quadrant pain Renal cyst BPH (benign prostatic hyperplasia) Medical History Acute renal insufficiency COVID-19 ruled out by laboratory testing Dehydration Syncope Social History Smoking Status: Never smoker Hx Alcohol Use: Yes Alcohol type: beer and hard liquor Hx Substance Use: No Preferred Language: Irish Communication Ability: Effective Department Head Required: No Beliefs That Will Affect Care: None Current Living Situation: Spouse Other Information That Helps Us Care for You: No Feels Safe at Home: Yes Safety Concerns: Feels Safe At This Time Assistive Devices: None Allergies Allergies Allergy/AdvReac Type Severity Reaction Status Date / Time lisinopril Allergy Intermediate Cough Unverified 01/27/25 12:48 Home Meds Home Medications Medication Instructions Recorded Confirmed celecoxib 200 mg capsule (Celebrex) 200 mg PO DAILY PRN Pain 06/10/21 01/27/25 metoprolol succinate 25 mg 12.5 mg PO BID 06/10/21 01/27/25 tablet,extended release 24 hr losartan 25 mg tablet 25 mg PO QAM 01/27/25 01/27/25 Previous Rx's Medication Instructions Recorded meclizine 25 mg tablet 25 mg PO TID PRN vertigo #45 tabs 01/27/25 ondansetron 4 mg disintegrating 4 mg PO Q6H PRN nausea and 01/27/25 tablet vomiting #20 tabs prednisone 20 mg tablet 40 mg (2 x 20 mg) PO DAILY 4 days 01/27/25 #8 tabs Results & Data (ED) Vital Signs Vital Signs - 24 hr 01/27/25 10:14 01/27/25 10:25 01/27/25 10:25 Temperature 36.4 C L Temperature Source Oral Pulse Rate 59 L 62 Pulse Rate [Apical] 61 Respiratory Rate 20 13 19 Respiratory Effort / Characteristics Non-Labored Spontaneous Respiratory Depth Normal Respiratory Pattern Regular Blood Pressure 154/90 H Blood Pressure [Right Arm] 155/94 H Blood Pressure Mean 111 Blood Pressure Mean [Right Arm] 114 Pulse Oximetry 99 99 100 Oxygen Delivery Method Room Air Room Air Room Air Sepsis Recent Fever Within 48 Hours No Sepsis New/Unexplained Change in Mental Status N/A Sepsis Action Taken by Nursing No Action Required 01/27/25 10:26 01/27/25 10:46 01/27/25 12:33 Temperature Temperature Source Pulse Rate 58 L Pulse Rate [Apical] 58 L Respiratory Rate 15 Respiratory Effort / Characteristics Respiratory Depth Respiratory Pattern Blood Pressure Blood Pressure [Right Arm] 141/80 H Blood Pressure Mean Blood Pressure Mean [Right Arm] 100 Pulse Oximetry 100 99 Oxygen Delivery Method Room Air Room Air Sepsis Recent Fever Within 48 Hours Sepsis New/Unexplained Change in Mental Status Sepsis Action Taken by Nursing 01/27/25 15:04 Temperature Temperature Source Pulse Rate Pulse Rate [Apical] 56 L Respiratory Rate 18 Respiratory Effort / Characteristics Non-Labored Spontaneous Respiratory Depth Normal Respiratory Pattern Blood Pressure Blood Pressure [Right Arm] 156/92 H Blood Pressure Mean Blood Pressure Mean [Right Arm] 113 Pulse Oximetry 98 Oxygen Delivery Method Room Air Sepsis Recent Fever Within 48 Hours Sepsis New/Unexplained Change in Mental Status Sepsis Action Taken by Group Home Medications Current Medication List: was personally reviewed by me Laboratory Data Attestation: I reviewed the patient's lab results. 01/28/25 06:58 01/28/25 06:58 Lab Results 01/27/25 01/27/25 01/27/25 Range/Units 10:25 10:34 15:02 WBC 4.38 L (4.8-10.8) K/ul RBC 4.58 L (4.70-6.10) M/uL Hgb 14.5 (14.0-18.0) g/dl Hct 43.0 (42.0-52.0) % MCV 93.9 (80.0-100.0) fL MCH 31.7 (25.0-34.0) pg MCHC 33.7 (32.0-36.0) g/dL RDW Std Deviation 45.1 (36.4-46.3) fL RDW Coeff of Shaneka 13.1 (11.5-14.5) % Plt Count 269 (130-400) K/uL MPV 8.9 L (9.4-12.4) fL Immature Gran % (Auto) 0.2 % Neut % (Auto) 52.7 % Lymph % (Auto) 36.1 % [place] % (Auto) 7.1 % Eos % (Auto) 3.4 % Baso % (Auto) 0.5 % Neut # (Auto) 2.31 (1.40-6.50) K/uL Lymph # (Auto) 1.58 (1.20-3.40) K/uL [place] # (Auto) 0.31 (0.11-0.59) K/uL Eos # (Auto) 0.15 (0.00-0.50) K/uL Baso # (Auto) 0.02 (0.00-0.20) K/uL Immature Gran # (Auto) 0.01 (0.01-0.20) K/uL Sodium 140 (136-145) mmol/L Potassium 4.2 (3.5-5.1) mmol/L Chloride 105 (98-107) mmol/L Carbon Dioxide 26 (21-32) mmol/L Anion Gap 9 (3-11) BUN 29 H (6-23) mg/dl Creatinine 1.02 (0.6-1.4) mg/dl Est Cr Clr Drug Dosing 85.4 ml/min eGFR 81.06 BUN/Creatinine Ratio 28.4 H (10-20) Glucose 130 H (70-99(Fasting)) mg/dl POC Glucose 120 H (70-99) mg/dl Calcium 9.0 (8.6-10.3) mg/dl Magnesium 2.0 (1.7-2.4) mg/dl Total Bilirubin 0.6 (0.2-1.0) mg/dl AST 21 (13-39) U/L ALT 19 (7-52) U/L Alkaline Phosphatase 54 (34-104) U/L Total Creatine Kinase 98 (30-223) U/L Troponin I High Sens 6.2 (0-20) pg/ml Total Protein 6.9 (6.0-8.3) gm/dl Albumin 4.1 (3.4-5.0) gm/dl Globulin 2.8 (2.5-4.0) gm/dl Albumin/Globulin Ratio 1.5 (0.9-2) Urine Color Yellow Urine Appearance Clear (Clear) Urine pH 6.0 (4.5-7.5) Ur Specific [place] > 1.045 H (1.000-1.030) Urine Protein Negative (Negative) Urine Glucose (UA) Negative (Negative) Urine Ketones Negative (Negative) Urine Blood Negative (Negative) Urine Nitrite Negative (Negative) Urine Bilirubin Negative (Negative) Urine Urobilinogen Negative (Negative) Ur Leukocyte Esterase Negative (Negative) Urine Comment Anaplasma Smear See Comment Babesia Smear See Comment Lyme Disease Screen Negative (Negative) Administered Medications Lactated Ringer's (Lr) 1,000 mls @ 125 mls/hr IV .Q8H SLAVA Stop: 01/28/25 09:00 Last Admin: 01/28/25 00:24 Dose: 125 mls/hr Documented By: Infusion: 01/27/25 23:52 Dose: Infused Documented By: Admin: 01/27/25 15:52 Dose: 125 mls/hr Documented By: INDIO Promethazine HCl (Phenergan) 12.5 mg in 50.5 mls @ 202 mls/hr IV Q8 PRN PRN Reason: Nausea And Vomiting Stop: 02/26/25 16:49 Last Infusion: 01/27/25 19:52 Dose: Infused Documented By: Admin: 01/27/25 19:34 Dose: 202 mls/hr Documented By: HARRY Meclizine HCl (Meclizine Hcl 25 Mg Tab) 25 mg PO TID SLAVA Stop: 02/26/25 20:59 Last Admin: 01/27/25 21:47 Dose: 25 mg Documented By: HARRY Metoprolol Succinate (Metoprolol Succ 25mg Ext Rel Tab) 12.5 mg PO BID SLAVA Stop: 02/26/25 20:59 Last Admin: 01/27/25 21:15 Dose: Not Given Documented By: HARRY Ondansetron HCl (Ondansetron Inj 2 Mg/Ml 2 Ml Vial) 4 mg IV Q8 SLAVA Stop: 02/26/25 21:59 Last Admin: 01/28/25 05:46 Dose: 4 mg Documented By: Admin: 01/27/25 21:17 Dose: 4 mg Documented By: HARRY Discontinued Medications Sodium Chloride (Nss) 500 mls @ 999 mls/hr IV .Q31M ONE Stop: 01/27/25 11:05 Last Infusion: 01/27/25 11:35 Dose: Infused Documented By: Admin: 01/27/25 10:55 Dose: 999 mls/hr Documented By: ZEV Sodium Chloride (Nss) 1,000 mls @ 999 mls/hr IV .Q1H1M ONE Stop: 01/27/25 12:53 Last Infusion: 01/27/25 12:58 Dose: Infused Documented By: Admin: 01/27/25 12:08 Dose: 999 mls/hr Documented By: NORMAN Famotidine (Pepcid 20mg Iv Push) 20 mg in 5 mls @ 2.5 mls/min IV NOW STA Stop: 01/27/25 11:58 Last Admin: 01/27/25 12:07 Dose: 2.5 mls/min Documented By: NORMAN Ioversol (Optiray 320 125ml) 117 ml IV ONCE ONE Stop: 01/27/25 11:17 Last Admin: 01/27/25 11:16 Dose: 117 ml Documented By: SADIE Lorazepam (Lorazepam 2 Mg/1 Ml Vial) 1 mg IV NOW STA Stop: 01/27/25 11:45 Last Admin: 01/27/25 12:07 Dose: 1 mg Documented By: NORMAN Meclizine HCl (Meclizine Hcl 25 Mg Tab) 25 mg PO NOW STA Stop: 01/27/25 10:40 Last Admin: 01/27/25 10:55 Dose: 25 mg Documented By: ZEV Methylprednisolone (Methylprednisolone 125 Mg/2 Ml Vial) 60 mg IV NOW STA Stop: 01/27/25 11:45 Last Admin: 01/27/25 12:07 Dose: 60 mg Documented By: NORMAN Ondansetron HCl (Ondansetron Inj 2 Mg/Ml 2 Ml Vial) 4 mg IV NOW STA Stop: 01/27/25 10:22 Last Admin: 01/27/25 10:55 Dose: 4 mg Documented By: ZEV Ondansetron HCl (Ondansetron Inj 2 Mg/Ml 2 Ml Vial) 4 mg IV NOW STA Stop: 01/27/25 11:45 Last Admin: 01/27/25 12:08 Dose: 4 mg Documented By: NORMAN Imaging Data Radiologist's Impression: Head CTA 01/27/25 10:34 CT angio head wo/w, CT angio neck with con CLINICAL HISTORY: 65 years-old Male with vertigo, vomiting. Acute vertigo with nausea and vomiting COMPARISON STUDY: Head CT 07/28/2020 TECHNIQUE: Unenhanced axial CT scan of the brain is performed. Subsequently, following the IV administration of 117 cc of Optiray, CT angiogram of the head and neck was performed from the skull base to the vertex. Images are reviewed in the axial, sagittal, and coronal planes. 3-D MIPS images are created and assessed. IV contrast was administered without complication. All measurements were obtained according to NASCET criteria. A dose lowering technique was utilized adhering to the principles of ALARA. CT DOSE: 1191.62 mGy.cm FINDINGS: CT BRAIN: There is no acute intracranial hemorrhage, midline shift, hydrocephalus, intracranial mass, territorial ischemia or abnormal extra-axial collections. No abnormal intra-axial or extra-axial enhancement. Mastoid air cells and middle ear cavities are clear. No calvarial fracture. Minimal mucosal thickening of the ethmoid air cells and frontal sinuses. 2.5 cm focus of polypoid mucosal thickening noted within the right maxillary sinus. CT ANGIOGRAM OF THE HEAD AND NECK: Three-vessel morphology of the thoracic aortic arch. Patent common and internal carotid arteries. There is moderate atherosclerosis of the right carotid bulb without significant stenosis. The internal carotid arteries are patent. The bilateral anterior and middle cerebral arteries are also patent. Vertebral arteries are patent. Diminutive basilar artery with origin of the right posterior cerebral artery. There is moderately diminished flow within the P2 segment left posterior cerebral artery compared to the right without discrete high-grade stenosis identified. There is no aneurysm, high-grade stenosis, or proximal branch occlusion identified. Dural sinuses appear patent. The lung apices appear clear. 8 mm hyperdense left-sided thyroid nodule. Degenerative changes of the cervical spine. IMPRESSION: 1. No acute intracranial abnormality identified. 2. There is diminished flow within the left posterior cerebral artery P2 segment compared to the right without discrete high-grade stenosis or arterial occlusion identified 3. Otherwise unremarkable CTA of the head and neck. ACT 112: Negative or not required by law. The above report was generated using voice recognition software. It may contain grammatical, syntax or spelling errors. Electronically signed by: Darrius Rubi M.D. 01/27/2025 11:53 AM Neck CTA 01/27/25 10:34 CT angio head wo/w, CT angio neck with con CLINICAL HISTORY: 65 years-old Male with vertigo, vomiting. Acute vertigo with nausea and vomiting COMPARISON STUDY: Head CT 07/28/2020 TECHNIQUE: Unenhanced axial CT scan of the brain is performed. Subsequently, following the IV administration of 117 cc of Optiray, CT angiogram of the head and neck was performed from the skull base to the vertex. Images are reviewed in the axial, sagittal, and coronal planes. 3-D MIPS images are created and assessed. IV contrast was administered without complication. All measurements were obtained according to NASCET criteria. A dose lowering technique was utilized adhering to the principles of ALARA. CT DOSE: 1191.62 mGy.cm FINDINGS: CT BRAIN: There is no acute intracranial hemorrhage, midline shift, hydrocephalus, intracranial mass, territorial ischemia or abnormal extra-axial collections. No abnormal intra-axial or extra-axial enhancement. Mastoid air cells and middle ear cavities are clear. No calvarial fracture. Minimal mucosal thickening of the ethmoid air cells and frontal sinuses. 2.5 cm focus of polypoid mucosal thickening noted within the right maxillary sinus. CT ANGIOGRAM OF THE HEAD AND NECK: Three-vessel morphology of the thoracic aortic arch. Patent common and internal carotid arteries. There is moderate atherosclerosis of the right carotid bulb without significant stenosis. The internal carotid arteries are patent. The bilateral anterior and middle cerebral arteries are also patent. Vertebral arteries are patent. Diminutive basilar artery with origin of the right posterior cerebral artery. There is moderately diminished flow within the P2 segment left posterior cerebral artery compared to the right without discrete high-grade stenosis identified. There is no aneurysm, high-grade stenosis, or proximal branch occlusion identified. Dural sinuses appear patent. The lung apices appear clear. 8 mm hyperdense left-sided thyroid nodule. Degenerative changes of the cervical spine. IMPRESSION: 1. No acute intracranial abnormality identified. 2. There is diminished flow within the left posterior cerebral artery P2 segment compared to the right without discrete high-grade stenosis or arterial occlusion identified 3. Otherwise unremarkable CTA of the head and neck. ACT 112: Negative or not required by law. The above report was generated using voice recognition software. It may contain grammatical, syntax or spelling errors. Electronically signed by: Darrius Rubi M.D. 01/27/2025 11:53 AM Brain MRI 01/27/25 12:16 MR brain wo con HISTORY: 65 years-old Male P2 segment acute severe vertigo with altered mental status COMPARISON: CTA of the head of same day TECHNIQUE: Multiplanar multisequence MRI of the brain was obtained without IV contrast FINDINGS: No restricted diffusion to suggest an acute or subacute infarct. Midline structures appear unremarkable. Degenerative changes of the imaged cervical spine. No acute intracranial hemorrhage, midline shift, abnormal extra-axial collection, hydrocephalus or intra-axial mass. Minimal involutional changes. There are a few scattered punctate T2/FLAIR hyperintense foci within the white matter likely representing early chronic microvascular ischemic disease. Cerebral venous sinuses and major arterial flow voids appear patent. Skull, orbits and soft tissues are unremarkable. Mastoid air cells are clear. Mild to moderate mucosal thickening of the paranasal sinuses. 2.3 cm right maxillary sinus polyp. IMPRESSION: No acute intracranial abnormality. No acute or subacute infarct. ACT 112: Negative or not required by law. The above report was generated using voice recognition software. It may contain grammatical, syntax or spelling errors. Electronically signed by: Darrius Rubi M.D. 01/27/2025 1:45 PM Discharge Plan Visit Data Chief Complaint: Dizziness Stated Complaint: DIZZINESS, HEART RATE-ARYTHMIA, VOMITING ED Provider: Fiordaliza Kaba Discharge Problem: Benign paroxysmal positional vertigo Patient Disposition: Home - Self-Care Condition: Good Discharge Instructions Interventions: ED Discharge Assessment Last Done: 01/27/25 17:15 Discharge Problem: Benign paroxysmal positional vertigo Qualifiers: Laterality: unspecified laterality Qualified Code(s): H81.10 - Benign paroxysmal vertigo, unspecified ear
[2025-01-27 15:16] LABS: Appearance Urine Clear (Clear); Bilirubin Urine Negative (Negative); Blood Urine Negative (Negative); Color Urine Yellow; Glucose Urine UA Negative (Negative); Ketones Urine Negative (Negative); Leukocyte Esterase Urine Negative (Negative); Nitrite Urine Negative (Negative); Protein Urine Negative (Negative); Specific Gravity Urine > 1.045 (1.000-1.030); Urobilinogen Urine Negative (Negative)
[2025-01-27] MEDS ORDERED: SODIUM CHLORIDE 0.9% 1,000 ML IV SCH (15:45)
[2025-01-27] MEDS: LACTATED RINGER'S 1,000 ML IV SCH (15:52)
--- NOTE | 2025-01-27 16:42 | History & Physical Report ---
Date of Service January 27, 2025 Assessment & Plan (1) Benign paroxysmal positional vertigo: Plan: -patient had horizontal nystagmus and abnormal head impulse testing (loses focus with head movement) suggestive of peripheral orgin of vertigo -MR head reassuring for no infarct, CTA neck shows diminished flow in left posterior cerebral artery P2 segment without evidence of stenosis -no loss of hearing, no tinnitus, no pain in ears -differential includes BPPV (most likely given symptoms), vertebrobasilar insufficiency (given CTA neck findings, but dizziness as only symptom makes seem less likely), recurrent vestibulopathy (less likely given duration), vestibular migraine (possible), less likely cervical spine infarct or late onset brain infarct Plan: -start scheduled meclizine and ondansetron for presumed BPPV -prn zofran for nausea/vomiting, promethazine for refractory symptoms -if symptoms do not improve by AM would consider neurology consult for consideration of vertebrobasilar insufficiency as stud driver of symptoms -PT/OT consults for Jr maneuver -LR maintenance fluids given struggling to eat at this time (2) Nausea & vomiting: Plan: -see above (3) Symptomatic PVCs: Plan: -could be contributing factor to lightheadedness Plan: -monitor on tele -continue metoprolol and losartan Plan I spent a total of 80 minutes in direct patient care, including [id number] time with the patient and/or family, reviewing medical records, ordering and reviewing diagnostic tests, and coordinating care with other healthcare providers. This time includes: history taking, physical examination, medical decision making, counseling, ECG interpretation, imaging interpretation, lab interpretation, orders, and education, excluding time spent in the performance of separately billed services. History of Present Illness Chief Complaint: -dizziness Primary Care Provider: Beau Montanez MD 65 yo male with pmhx frequent PVCs/PACs (follows with Del[facility] outpatient, last seen 2022), HTN, chronic back pain, mild mitral regurgitation who presents for sudden onset vertigo. Has no recent admissions at [facility] or [facility]. Patient seen and examined at bedside. present as well. Patient orthopaedic surgeon, very active at baseline. States that he was doing well at home today, sat down to play piano, and immediately the world began spinning. States the symptoms did not subside with rest. Complicated by nausea and vomiting. States he also felt very uneasy on his feet. States he is unable to tolerate PO at this time due to the symptoms. Symptoms improved mildly with medications but still has dizziness, nausea, vomiting. Denies SOB, chest pain, other associated symptoms. No tobacco use, mild alcohol use (1-2x per week), no drug use, full code, discussed with patient and . Allergies Allergy/AdvReac Type Severity Reaction Status Date / Time lisinopril Allergy Intermediate Cough Unverified 01/27/25 12:48 Home Medications Medication Instructions Recorded Confirmed Type celecoxib 200 mg capsule (Celebrex) 200 mg PO DAILY PRN Pain 06/10/21 01/27/25 History metoprolol succinate 25 mg 12.5 mg PO BID 06/10/21 01/27/25 History tablet,extended release 24 hr losartan 25 mg tablet 25 mg PO QAM 01/27/25 01/27/25 History meclizine 25 mg tablet 25 mg PO TID PRN vertigo #45 tabs 01/27/25 Rx ondansetron 4 mg disintegrating 4 mg PO Q6H PRN nausea and 01/27/25 Rx tablet vomiting #20 tabs prednisone 20 mg tablet 40 mg (2 x 20 mg) PO DAILY 4 days 01/27/25 Rx #8 tabs Past Med/Surg History Problem List Symptomatic PVCs Nausea & vomiting Benign paroxysmal positional vertigo (Acute) Bilateral inguinal hernia History of diverticulitis Left lower quadrant pain Renal cyst BPH (benign prostatic hyperplasia) Medical History Acute renal insufficiency COVID-19 ruled out by laboratory testing Dehydration Syncope Social History Smoking Status: Never smoker Hx Alcohol Use: Yes Alcohol type: wine Hx Substance Use: No Preferred Language: Lao Communication Ability: Effective Sql Server D[employer] Developer Required: No Beliefs That Will Affect Care: None Current Living Situation: Spouse Feels Safe at Home: Yes Assistive Devices: None Review of Systems Review of Systems: CONSTITUTIONAL: Patient denies fevers, chills, sweats and weight changes. EYES: Patient denies any visual symptoms. EARS, NOSE, AND THROAT: No difficulties with hearing. No symptoms of rhinitis or sore throat. CARDIOVASCULAR: Patient denies chest pains, palpitations, orthopnea and paroxysmal nocturnal dyspnea. RESPIRATORY: No dyspnea on exertion, no wheezing or cough. GI: nausea/vomiting : No urinary hesitancy or dribbling. No nocturia or urinary frequency. No abnormal urethral discharge. MUSCULOSKELETAL: No myalgias or arthralgias. NEUROLOGIC: dizziness PSYCHIATRIC: Patient denies problems with mood disturbance. No problems with anxiety. ENDOCRINE: No excessive urination or excessive thirst. DERMATOLOGIC: Patient denies any rashes or skin changes. Physical Exam Physical Exam: Gen: A&O 3 NAD HEENT: NCAT, EOMI, not icteric. External ears normal. No rhinorrhea. Moist mucous membranes. Neck: Supple, full range of motion, no observable masses, No meningeal sign. Lungs: No Respiratory distress. CV: RRR, no edema. Abdomen: Soft, nondistended, No rebound tenderness. MSK: No joint swelling, no redness. Skin: No rashes, petechiae, lesions. Normal color per patient. Neuro: Normal Gait, Grossly intact. Horizontal nystagmus noted, dizziness and loss of focus with head movement Psych: Appropriate for situation. Results & Data Results & Data Vital Signs (Past 12 Hours) Vital Signs Temp Pulse Pulse Resp BP BP Pulse Ox 01/27/25 15:04 56 L 18 156/92 H 98 01/27/25 12:33 58 L 15 141/80 H 99 01/27/25 10:46 58 L 01/27/25 10:26 100 01/27/25 10: 62 19 100 01/27/25 10:25 61 13 155/94 H 99 01/27/25 10:14 36.4 C L 59 L 20 154/90 H 99 O2 Del Method 01/27/25 15:04 Room Air 01/27/25 12:33 Room Air 01/27/25 10:46 01/27/25 10:26 Room Air 01/27/25 10:25 Room Air 01/27/25 10:25 Room Air 01/27/25 10:14 Room Air Laboratory Results -personally reviewed, no leukocytosis, creatinine at baseline Medications Administered Lactated Ringer's (Lr) 1,000 mls @ 125 mls/hr IV .Q8H SLAVA Stop: 01/28/25 09:00 Last Admin: 01/27/25 15:52 Dose: 125 mls/hr Documented By: CTK Code Status & VTE Plan Code Status -full code, discussed with patient and (1) Benign paroxysmal positional vertigo Laterality: unspecified laterality Qualified Code(s): H81.10 - Benign paroxysmal vertigo, unspecified ear
[2025-01-27] MEDS ORDERED: POLYETHYLENE (MIRALAX) 17 GM PACK PO PRN (18:10)
[2025-01-27] MEDS ORDERED: MELATONIN 3 MG TAB PO PRN (18:10)
[2025-01-27] MEDS ORDERED: ACETAMINOPHEN 325 MG TAB PO PRN (18:10)
--- NOTE | 2025-01-27 18:48 | Electrocardiogram Report ---
Test Reason : Blood Pressure : */* mmHG Vent. Rate : 55 BPM Atrial Rate : 55 BPM P-R Int : 172 ms QRS Dur : 84 ms QT Int : 432 ms P-R-T Axes : 9 47 0 degrees QTcB Int : 413 ms Sinus bradycardia Otherwise normal ECG When compared with ECG of 28-Jul-2020 21:58, Vent. rate has decreased by 28 bpm Confirmed by Trever Marin ([id number]) on 01/27/2025 6:48:00 PM Referred By: REFERRED SELF Confirmed By: Trever Marin
[2025-01-27] MEDS: PROMETHAZINE 12.5 MG/50.5 ML BAG IV PRN (19:34)
[2025-01-27] MEDS: METOPROLOL SUCC 25MG EXT REL TAB PO SCH (21:15)
[2025-01-27] MEDS: ONDANSETRON INJ 2 MG/ML 2 ML VIAL IV SCH (21:17)
[2025-01-27] MEDS: MECLIZINE HCL 25 MG TAB PO SCH (21:47)
[2025-01-28 07:20] LABS: Hematocrit (blood only) 40.1 % (42.0-52.0); Hemoglobin 13.6 g/dl (14.0-18.0); Mean Corpuscular Hemoglobin 32.2 pg (25.0-34.0); Mean Corpuscular Hgb Conc 33.9 g/dL (32.0-36.0); Mean Platelet Volume 9.1 fL (9.4-12.4); Platelet Count 267 K/uL (130-400); RDW Coefficient of Variation 13.2 % (11.5-14.5); RDW Standard Deviation 45.8 fL (36.4-46.3); Red Blood Count 4.22 M/uL (4.70-6.10); White Blood Count 11.73 K/ul (4.8-10.8)
[2025-01-28 07:35] LABS: BUN Creatinine Ratio 26.6 (10-20); Calcium 8.6 mg/dl (8.6-10.3); Creatinine Clr Calc Pharmacy 92.7 ml/min; Magnesium 1.9 mg/dl (1.7-2.4); Potassium 4.8 mmol/L (3.5-5.1)
[2025-01-28 08:54] VITALS: O2SAT 99
[2025-01-28] MEDS: LOSARTAN POTASSIUM 25 MG TAB PO SCH (09:27)
[2025-01-28 11:29] VITALS: BP 151/93; PULSE 51; RESP 18; TEMP 98.4
--- NOTE | 2025-01-28 11:32 | Hospitalist Progress Note ---
Date of Service January 28, 2025 Assessment & Plan (1) Benign paroxysmal positional vertigo: Plan: Vertigo Likely BPPV Patient had horizontal nystagmus and abnormal head impulse testing (loses focus with head movement) --MRI Brain:No acute intracranial abnormality. No acute or subacute infarct. --Head CTA:No acute intracranial abnormality identified. There is diminished flow within the left posterior cerebral artery P2 segment compared to the right without discrete high-grade stenosis or arterial occlusion identified. Otherwise unremarkable CTA of the head and neck. --Neck CTA:No acute intracranial abnormality identified. There is diminished flow within the left posterior cerebral artery P2 segment compared to the right without discrete high-grade stenosis or arterial occlusion identified. Otherwise unremarkable CTA of the head and neck. --Normal Orthostasis -- Appreciate neurology input --Advised to follow-up with ENT as outpatient --Received IV fluids -- Symptoms resolved --Continue meclizine as needed --Evaluated by PT --Plan to discharge home today (2) Nausea & vomiting: Plan: -see above (3) Symptomatic PVCs: Plan: Continue metoprolol Sinus bradycardia Likely secondary to metoprolol Currently asymptomatic Monitor Mild leukocytosis Likely reactive No obvious signs of infection Afebrile, Monitor Hypertension Blood pressure slightly variable likely situational Continue losartan, metoprolol Monitor blood pressure Code Status Full Code Disposition Home Admission and Anticipated Discharge Date Admission Date: January 27, 2025 Subjective Patient is seen and examined at bedside Dizziness/vertigo resolved Nausea improved as well Denies any chest pain, dyspnea, vomiting, dizziness Discussed with neurology today No other complaints Prefers to be discharged home today Review of Systems Review of Systems: All systems reviewed & are unremarkable except as noted in Subjective Physical Exam Physical Exam: Physical Exam: Vitals signs as noted above General Appearance:Moderately built and nourished, no apparent distress Head: normocephalic, Atraumatic Eyes: normal inspection, EOMI Neck: supple, Trachea midline Respiratory/Chest: Normal breath sounds, CTA, No accessory muscle use Cardiovascular: S1, S2, No murmur Abdomen/GI:Soft, Non tender, Bowel sounds present Extremities/Musculoskeletal:normal inspection, no edema Neurologic/Psych:AAOX3, grossly no focal neurological deficits Skin: normal color, warm Results & Data Results & Data Vital Signs (Past 12 Hours) Vital Signs Temp Pulse Pulse Resp BP Pulse Ox O2 Del Method 01/28/25 11:29 36.9 C 51 L 18 151/93 H 99 Room Air 01/28/25 08:53 36.7 C 49 L 16 130/75 99 Room Air 01/28/25 07:12 62 01/28/25 04:00 36.6 C 51 L 16 109/51 L 97 Room Air Laboratory Results Laboratory Results WBC 11.73 K/ul (4.8-10.8) H 01/28/25 06:58 RBC 4.22 M/uL (4.70-6.10) L 01/28/25 06:58 Hgb 13.6 g/dl (14.0-18.0) L 01/28/25 06:58 Hct 40.1 % (42.0-52.0) L 01/28/25 06:58 MCV 95.0 fL (80.0-100.0) 01/28/25 06:58 MCH 32.2 pg (25.0-34.0) 01/28/25 06:58 MCHC 33.9 g/dL (32.0-36.0) 01/28/25 06:58 RDW Std Deviation 45.8 fL (36.4-46.3) 01/28/25 06:58 RDW Coeff of Shaneka 13.2 % (11.5-14.5) 01/28/25 06:58 Plt Count 267 K/uL (130-400) 01/28/25 06:58 MPV 9.1 fL (9.4-12.4) L 01/28/25 06:58 Immature Gran % (Auto) 0.2 % 01/27/25 10:25 Neut % (Auto) 52.7 % 01/27/25 10:25 Lymph % (Auto) 36.1 % 01/27/25 10:25 [place] % (Auto) 7.1 % 01/27/25 10:25 Eos % (Auto) 3.4 % 01/27/25 10:25 Baso % (Auto) 0.5 % 01/27/25 10:25 Neut # (Auto) 2.31 K/uL (1.40-6.50) 01/27/25 10:25 Lymph # (Auto) 1.58 K/uL (1.20-3.40) 01/27/25 10:25 [place] # (Auto) 0.31 K/uL (0.11-0.59) 01/27/25 10:25 Eos # (Auto) 0.15 K/uL (0.00-0.50) 01/27/25 10:25 Baso # (Auto) 0.02 K/uL (0.00-0.20) 01/27/25 10:25 Immature Gran # (Auto) 0.01 K/uL (0.01-0.20) 01/27/25 10:25 Sodium 141 mmol/L (136-145) 01/28/25 06:58 Potassium 4.8 mmol/L (3.5-5.1) 01/28/25 06:58 Chloride 107 mmol/L (98-107) 01/28/25 06:58 Carbon Dioxide 30 mmol/L (21-32) 01/28/25 06:58 Anion Gap 4 (3-11) 01/28/25 06:58 BUN 25 mg/dl (6-23) H 01/28/25 06:58 Creatinine 0.94 mg/dl (0.6-1.4) 01/28/25 06:58 Est Cr Clr Drug Dosing 92.7 ml/min 01/28/25 06:58 eGFR 89.41 01/28/25 06:58 BUN/Creatinine Ratio 26.6 (10-20) H 01/28/25 06:58 Glucose 114 mg/dl (70-99(Fasting)) H 01/28/25 06:58 POC Glucose 120 mg/dl (70-99) H 01/27/25 10:34 Calcium 8.6 mg/dl (8.6-10.3) 01/28/25 06:58 Magnesium 1.9 mg/dl (1.7-2.4) 01/28/25 06:58 Total Bilirubin 0.6 mg/dl (0.2-1.0) 01/27/25 10:25 AST 21 U/L (13-39) 01/27/25 10:25 ALT 19 U/L (7-52) 01/27/25 10:25 Alkaline Phosphatase 54 U/L (34-104) 01/27/25 10:25 Total Creatine Kinase 98 U/L (30-223) 01/27/25 10:25 Troponin I High Sens 6.2 pg/ml (0-20) 01/27/25 10:25 Total Protein 6.9 gm/dl (6.0-8.3) 01/27/25 10:25 Albumin 4.1 gm/dl (3.4-5.0) 01/27/25 10:25 Globulin 2.8 gm/dl (2.5-4.0) 01/27/25 10:25 Albumin/Globulin Ratio 1.5 (0.9-2) 01/27/25 10:25 Urine Color Yellow 01/27/25 15:02 Urine Appearance Clear (Clear) 01/27/25 15:02 Urine pH 6.0 (4.5-7.5) 01/27/25 15:02 Ur Specific [place] > 1.045 (1.000-1.030) H 01/27/25 15:02 Urine Protein Negative (Negative) 01/27/25 15:02 Urine Glucose (UA) Negative (Negative) 01/27/25 15:02 Urine Ketones Negative (Negative) 01/27/25 15:02 Urine Blood Negative (Negative) 01/27/25 15:02 Urine Nitrite Negative (Negative) 01/27/25 15:02 Urine Bilirubin Negative (Negative) 01/27/25 15:02 Urine Urobilinogen Negative (Negative) 01/27/25 15:02 Ur Leukocyte Esterase Negative (Negative) 01/27/25 15:02 Urine Comment 01/27/25 15:02 Anaplasma Smear See Comment 01/27/25 10:25 Babesia Smear See Comment 01/27/25 10:25 Lyme Disease Screen Negative (Negative) 01/27/25 10:25 Impressions Head CTA 01/27/25 10:34 CT angio head wo/w, CT angio neck with con CLINICAL HISTORY: 65 years-old Male with vertigo, vomiting. Acute vertigo with nausea and vomiting COMPARISON STUDY: Head CT 07/28/2020 TECHNIQUE: Unenhanced axial CT scan of the brain is performed. Subsequently, following the IV administration of 117 cc of Optiray, CT angiogram of the head and neck was performed from the skull base to the vertex. Images are reviewed in the axial, sagittal, and coronal planes. 3-D MIPS images are created and assessed. IV contrast was administered without complication. All measurements were obtained according to NASCET criteria. A dose lowering technique was utilized adhering to the principles of ALARA. CT DOSE: 1191.62 mGy.cm FINDINGS: CT BRAIN: There is no acute intracranial hemorrhage, midline shift, hydrocephalus, intracranial mass, territorial ischemia or abnormal extra-axial collections. No abnormal intra-axial or extra-axial enhancement. Mastoid air cells and middle ear cavities are clear. No calvarial fracture. Minimal mucosal thickening of the ethmoid air cells and frontal sinuses. 2.5 cm focus of polypoid mucosal thickening noted within the right maxillary sinus. CT ANGIOGRAM OF THE HEAD AND NECK: Three-vessel morphology of the thoracic aortic arch. Patent common and internal carotid arteries. There is moderate atherosclerosis of the right carotid bulb without significant stenosis. The internal carotid arteries are patent. The bilateral anterior and middle cerebral arteries are also patent. Vertebral arteries are patent. Diminutive basilar artery with origin of the right posterior cerebral artery. There is moderately diminished flow within the P2 segment left posterior cerebral artery compared to the right without discrete high-grade stenosis identified. There is no aneurysm, high-grade stenosis, or proximal branch occlusion identified. Dural sinuses appear patent. The lung apices appear clear. 8 mm hyperdense left-sided thyroid nodule. Degenerative changes of the cervical spine. IMPRESSION: 1. No acute intracranial abnormality identified. 2. There is diminished flow within the left posterior cerebral artery P2 segment compared to the right without discrete high-grade stenosis or arterial occlusion identified 3. Otherwise unremarkable CTA of the head and neck. ACT 112: Negative or not required by law. The above report was generated using voice recognition software. It may contain grammatical, syntax or spelling errors. Electronically signed by: Darrius Rubi M.D. 01/27/2025 11:53 AM Neck CTA 01/27/25 10:34 CT angio head wo/w, CT angio neck with con CLINICAL HISTORY: 65 years-old Male with vertigo, vomiting. Acute vertigo with nausea and vomiting COMPARISON STUDY: Head CT 07/28/2020 TECHNIQUE: Unenhanced axial CT scan of the brain is performed. Subsequently, following the IV administration of 117 cc of Optiray, CT angiogram of the head and neck was performed from the skull base to the vertex. Images are reviewed in the axial, sagittal, and coronal planes. 3-D MIPS images are created and assessed. IV contrast was administered without complication. All measurements were obtained according to NASCET criteria. A dose lowering technique was utilized adhering to the principles of ALARA. CT DOSE: 1191.62 mGy.cm FINDINGS: CT BRAIN: There is no acute intracranial hemorrhage, midline shift, hydrocephalus, intracranial mass, territorial ischemia or abnormal extra-axial collections. No abnormal intra-axial or extra-axial enhancement. Mastoid air cells and middle ear cavities are clear. No calvarial fracture. Minimal mucosal thickening of the ethmoid air cells and frontal sinuses. 2.5 cm focus of polypoid mucosal thickening noted within the right maxillary sinus. CT ANGIOGRAM OF THE HEAD AND NECK: Three-vessel morphology of the thoracic aortic arch. Patent common and internal carotid arteries. There is moderate atherosclerosis of the right carotid bulb without significant stenosis. The internal carotid arteries are patent. The bilateral anterior and middle cerebral arteries are also patent. Vertebral arteries are patent. Diminutive basilar artery with origin of the right posterior cerebral artery. There is moderately diminished flow within the P2 segment left posterior cerebral artery compared to the right without discrete high-grade stenosis identified. There is no aneurysm, high-grade stenosis, or proximal branch occlusion identified. Dural sinuses appear patent. The lung apices appear clear. 8 mm hyperdense left-sided thyroid nodule. Degenerative changes of the cervical spine. IMPRESSION: 1. No acute intracranial abnormality identified. 2. There is diminished flow within the left posterior cerebral artery P2 segment compared to the right without discrete high-grade stenosis or arterial occlusion identified 3. Otherwise unremarkable CTA of the head and neck. ACT 112: Negative or not required by law. The above report was generated using voice recognition software. It may contain grammatical, syntax or spelling errors. Electronically signed by: Darrius Rubi M.D. 01/27/2025 11:53 AM Brain MRI 01/27/25 12:16 MR brain wo con HISTORY: 65 years-old Male P2 segment acute severe vertigo with altered mental status COMPARISON: CTA of the head of same day TECHNIQUE: Multiplanar multisequence MRI of the brain was obtained without IV contrast FINDINGS: No restricted diffusion to suggest an acute or subacute infarct. Midline structures appear unremarkable. Degenerative changes of the imaged cervical spine. No acute intracranial hemorrhage, midline shift, abnormal extra-axial collection, hydrocephalus or intra-axial mass. Minimal involutional changes. There are a few scattered punctate T2/FLAIR hyperintense foci within the white matter likely representing early chronic microvascular ischemic disease. Cerebral venous sinuses and major arterial flow voids appear patent. Skull, orbits and soft tissues are unremarkable. Mastoid air cells are clear. Mild to moderate mucosal thickening of the paranasal sinuses. 2.3 cm right maxillary sinus polyp. IMPRESSION: No acute intracranial abnormality. No acute or subacute infarct. ACT 112: Negative or not required by law. The above report was generated using voice recognition software. It may contain grammatical, syntax or spelling errors. Electronically signed by: Darrius Rubi M.D. 01/27/2025 1:45 PM (1) Benign paroxysmal positional vertigo Laterality: unspecified laterality Qualified Code(s): H81.10 - Benign paroxysmal vertigo, unspecified ear
--- NOTE | 2025-01-28 12:12 | Neurology Consultation ---
Date of Consultation January 28, 2025 Assessment & Plan (1) Benign paroxysmal positional vertigo: Andrea Wagoner is a 65 yo M presenting with peripheral vertigo. MRI brain is unremarkable, CTA read as L [place] PACKER stenosis, likely anatomic variant, no plaque noted. We discussed his 10 year ASCVD risk score and he plans to work with his PCP to lower his future vascular disease risk noting the elevated BP and previously elevated LDL. Otherwise not consistent with vertebrobasilar insufficincy, as there is no vertebrobasilar disease. -- PCP follow-up for vascular risk factor reduction. -- ENT referral for the L ear symptoms -- Meclizine as needed for vertigo -- Please contact us with any additional questions Telehealth Consultation Telehealth Information Telehealth Information: I performed this visit using a real-time telehealth connection between my location and the patients location ([facility]). After connecting through interactive tele-video, patient was identified by name and date of and/or wristband check.Patient (or authorized healthcare financial service representative) was informed that this was a telemedicine visit and it was being conducted confidentially over secure lines. My office door was closed and no one else was present in the room with me.Patient (or authorized healthcare financial service representative) provided consent to proceed with the visit, expressed an understanding of privacy and security of the telemedicine visit, and gave permission to have a hospital financial service representative in the room in order to assist with the visit and to conduct portions of the visit, as needed. I informed the patient (or authorized healthcare financial service representative) that I reviewed their record and presented the opportunity for them to ask any questions regarding the visit today. The patient agreed to participate. History of Present Illness Reason for Consultation: Vertigo Requesting Physician: Dr. Mckinnon Attending Physician: Ferdinand Mckinnon MD History of Present Illness Andrea Wagoner is a 65 yo M presenting with acute, severe, movement induced vertigo yesterday that began while playing the piano. He has never had vertigo like that in the past, was nauseous, vomiting and could not stand or walk. He performed many cannalith repositioning maneuvers today and feels back to baseline. He noted fullness of the L ear since COVID but otherwise has not had similar vertigo, though per his description the direction of the nystagmus suggests L vestibular dysfunction. 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 Allergies Allergy/AdvReac Type Severity Reaction Status Date / Time lisinopril Allergy Intermediate Cough Unverified 01/27/25 12:48 Home Medications Medication Instructions Recorded Confirmed Type celecoxib 200 mg capsule (Celebrex) 200 mg PO DAILY PRN Pain 06/10/21 01/27/25 History metoprolol succinate 25 mg 12.5 mg PO BID 06/10/21 01/27/25 History tablet,extended release 24 hr losartan 25 mg tablet 25 mg PO QAM 01/27/25 01/27/25 History meclizine 25 mg tablet 25 mg PO TID PRN vertigo #45 tabs 01/27/25 Rx ondansetron 4 mg disintegrating 4 mg PO Q6H PRN nausea and 01/27/25 Rx tablet vomiting #20 tabs prednisone 20 mg tablet 40 mg (2 x 20 mg) PO DAILY 4 days 01/27/25 Rx #8 tabs Patient History Medical History Acute renal insufficiency COVID-19 ruled out by laboratory testing Dehydration Syncope Social History Smoking Status: Never smoker Hx Alcohol Use: Yes Alcohol type: beer and hard liquor Hx Substance Use: No Preferred Language: [place] Communication Ability: Effective Neuropsychology Medical Consultant Required: No Beliefs That Will Affect Care: None Current Living Situation: Spouse Other Information That Helps Us Care for You: No Feels Safe at Home: Yes Safety Concerns: Feels Safe At This Time Assistive Devices: None Review of Systems +vertigo, resolved Physical Exam Awake and alert, speech clear, face symmetric, moving all extremities antigravity. Able to stand unassisted without difficulty. Results & Data Vital Signs (Past 12 Hours) Vital Signs Temp Pulse Pulse Resp BP Pulse Ox O2 Del Method 01/28/25 11:29 36.9 C 51 L 18 151/93 H 99 Room Air 01/28/25 08:53 36.7 C 49 L 16 130/75 99 Room Air 01/28/25 07:12 62 01/28/25 04:00 36.6 C 51 L 16 109/51 L 97 Room Air Diagnostic Findings MRI Brain - Unremarkable CTA head and neck - Small/?stenotic L [place]ER P2 segment, minimal carotid plaque bilaterally (1) Benign paroxysmal positional vertigo Laterality: unspecified laterality Qualified Code(s): H81.10 - Benign paroxysmal vertigo, unspecified ear
--- NOTE | 2025-01-28 12:45 | Discharge Summary ---
Date of Service January 28, 2025 Admission HPI Per Admitting Provider 65 yo male with pmhx frequent PVCs/PACs (follows with Del[facility] outpatient, last seen 2022), HTN, chronic back pain, mild mitral regurgitation who presents for sudden onset vertigo. Has no recent admissions at [facility] or [facility]. Patient seen and examined at bedside. present as well. Patient orthopaedic surgeon, very active at baseline. States that he was doing well at home today, sat down to play piano, and immediately the world began spinning. States the symptoms did not subside with rest. Complicated by nausea and vomiting. States he also felt very uneasy on his feet. States he is unable to tolerate PO at this time due to the symptoms. Symptoms improved mildly with medications but still has dizziness, nausea, vomiting. Denies SOB, chest pain, other associated symptoms. No tobacco use, mild alcohol use (1-2x per week), no drug use, full code, discussed with patient and . Admission Exam Per Admitting Provider Gen: A&O 3 NAD HEENT: NCAT, EOMI, not icteric. External ears normal. No rhinorrhea. Moist mucous membranes. Neck: Supple, full range of motion, no observable masses, No meningeal sign. Lungs: No Respiratory distress. CV: RRR, no edema. Abdomen: Soft, nondistended, No rebound tenderness. MSK: No joint swelling, no redness. Skin: No rashes, petechiae, lesions. Normal color per patient. Neuro: Normal Gait, Grossly intact. Horizontal nystagmus noted, dizziness and loss of focus with head movement Psych: Appropriate for situation. Principal Diagnosis Vertigo likely benign paroxysmal positional vertigo Sinus bradycardia Hypertension Discharge Data Allergies Allergy/AdvReac Type Severity Reaction Status Date / Time lisinopril Allergy Intermediate Cough Unverified 01/27/25 12:48 Consultations 01/27/25 14:55 ED Decision to Admit Stat 01/28/25 09:15 Consult Neurology Routine Procedures Performed Laboratory Results WBC 11.73 K/ul (4.8-10.8) H 01/28/25 06:58 RBC 4.22 M/uL (4.70-6.10) L 01/28/25 06:58 Hgb 13.6 g/dl (14.0-18.0) L 01/28/25 06:58 Hct 40.1 % (42.0-52.0) L 01/28/25 06:58 MCV 95.0 fL (80.0-100.0) 01/28/25 06:58 MCH 32.2 pg (25.0-34.0) 01/28/25 06:58 MCHC 33.9 g/dL (32.0-36.0) 01/28/25 06:58 RDW Std Deviation 45.8 fL (36.4-46.3) 01/28/25 06:58 RDW Coeff of Shaneka 13.2 % (11.5-14.5) 01/28/25 06:58 Plt Count 267 K/uL (130-400) 01/28/25 06:58 MPV 9.1 fL (9.4-12.4) L 01/28/25 06:58 Immature Gran % (Auto) 0.2 % 01/27/25 10:25 Neut % (Auto) 52.7 % 01/27/25 10:25 Lymph % (Auto) 36.1 % 01/27/25 10:25 [place] % (Auto) 7.1 % 01/27/25 10:25 Eos % (Auto) 3.4 % 01/27/25 10:25 Baso % (Auto) 0.5 % 01/27/25 10:25 Neut # (Auto) 2.31 K/uL (1.40-6.50) 01/27/25 10:25 Lymph # (Auto) 1.58 K/uL (1.20-3.40) 01/27/25 10:25 [place] # (Auto) 0.31 K/uL (0.11-0.59) 01/27/25 10:25 Eos # (Auto) 0.15 K/uL (0.00-0.50) 01/27/25 10:25 Baso # (Auto) 0.02 K/uL (0.00-0.20) 01/27/25 10:25 Immature Gran # (Auto) 0.01 K/uL (0.01-0.20) 01/27/25 10:25 Sodium 141 mmol/L (136-145) 01/28/25 06:58 Potassium 4.8 mmol/L (3.5-5.1) 01/28/25 06:58 Chloride 107 mmol/L (98-107) 01/28/25 06:58 Carbon Dioxide 30 mmol/L (21-32) 01/28/25 06:58 Anion Gap 4 (3-11) 01/28/25 06:58 BUN 25 mg/dl (6-23) H 01/28/25 06:58 Creatinine 0.94 mg/dl (0.6-1.4) 01/28/25 06:58 Est Cr Clr Drug Dosing 92.7 ml/min 01/28/25 06:58 eGFR 89.41 01/28/25 06:58 BUN/Creatinine Ratio 26.6 (10-20) H 01/28/25 06:58 Glucose 114 mg/dl (70-99(Fasting)) H 01/28/25 06:58 POC Glucose 120 mg/dl (70-99) H 01/27/25 10:34 Calcium 8.6 mg/dl (8.6-10.3) 01/28/25 06:58 Magnesium 1.9 mg/dl (1.7-2.4) 01/28/25 06:58 Total Bilirubin 0.6 mg/dl (0.2-1.0) 01/27/25 10:25 AST 21 U/L (13-39) 01/27/25 10:25 ALT 19 U/L (7-52) 01/27/25 10:25 Alkaline Phosphatase 54 U/L (34-104) 01/27/25 10:25 Total Creatine Kinase 98 U/L (30-223) 01/27/25 10:25 Troponin I High Sens 6.2 pg/ml (0-20) 01/27/25 10:25 Total Protein 6.9 gm/dl (6.0-8.3) 01/27/25 10:25 Albumin 4.1 gm/dl (3.4-5.0) 01/27/25 10:25 Globulin 2.8 gm/dl (2.5-4.0) 01/27/25 10:25 Albumin/Globulin Ratio 1.5 (0.9-2) 01/27/25 10:25 Urine Color Yellow 01/27/25 15:02 Urine Appearance Clear (Clear) 01/27/25 15:02 Urine pH 6.0 (4.5-7.5) 01/27/25 15:02 Ur Specific [place]y > 1.045 (1.000-1.030) H 01/27/25 15:02 Urine Protein Negative (Negative) 01/27/25 15:02 Urine Glucose (UA) Negative (Negative) 01/27/25 15:02 Urine Ketones Negative (Negative) 01/27/25 15:02 Urine Blood Negative (Negative) 01/27/25 15:02 Urine Nitrite Negative (Negative) 01/27/25 15:02 Urine Bilirubin Negative (Negative) 01/27/25 15:02 Urine Urobilinogen Negative (Negative) 01/27/25 15:02 Ur Leukocyte Esterase Negative (Negative) 01/27/25 15:02 Urine Comment 01/27/25 15:02 Anaplasma Smear See Comment 01/27/25 10:25 Babesia Smear See Comment 01/27/25 10:25 Lyme Disease Screen Negative (Negative) 01/27/25 10:25 Impressions Head CTA 01/27/25 10:34 CT angio head wo/w, CT angio neck with con CLINICAL HISTORY: 65 years-old Male with vertigo, vomiting. Acute vertigo with nausea and vomiting COMPARISON STUDY: Head CT 07/28/2020 TECHNIQUE: Unenhanced axial CT scan of the brain is performed. Subsequently, following the IV administration of 117 cc of Optiray, CT angiogram of the head and neck was performed from the skull base to the vertex. Images are reviewed in the axial, sagittal, and coronal planes. 3-D MIPS images are created and assessed. IV contrast was administered without complication. All measurements were obtained according to NASCET criteria. A dose lowering technique was utilized adhering to the principles of ALARA. CT DOSE: 1191.62 mGy.cm FINDINGS: CT BRAIN: There is no acute intracranial hemorrhage, midline shift, hydrocephalus, intracranial mass, territorial ischemia or abnormal extra-axial collections. No abnormal intra-axial or extra-axial enhancement. Mastoid air cells and middle ear cavities are clear. No calvarial fracture. Minimal mucosal thickening of the ethmoid air cells and frontal sinuses. 2.5 cm focus of polypoid mucosal thickening noted within the right maxillary sinus. CT ANGIOGRAM OF THE HEAD AND NECK: Three-vessel morphology of the thoracic aortic arch. Patent common and internal carotid arteries. There is moderate atherosclerosis of the right carotid bulb without significant stenosis. The internal carotid arteries are patent. The bilateral anterior and middle cerebral arteries are also patent. Vertebral arteries are patent. Diminutive basilar artery with origin of the right posterior cerebral artery. There is moderately diminished flow within the P2 segment left posterior cerebral artery compared to the right without discrete high-grade stenosis identified. There is no aneurysm, high-grade stenosis, or proximal branch occlusion identified. Dural sinuses appear patent. The lung apices appear clear. 8 mm hyperdense left-sided thyroid nodule. Degenerative changes of the cervical spine. IMPRESSION: 1. No acute intracranial abnormality identified. 2. There is diminished flow within the left posterior cerebral artery P2 segment compared to the right without discrete high-grade stenosis or arterial occlusion identified 3. Otherwise unremarkable CTA of the head and neck. ACT 112: Negative or not required by law. The above report was generated using voice recognition software. It may contain grammatical, syntax or spelling errors. Electronically signed by: Darrius Rubi M.D. 01/27/2025 11:53 AM Neck CTA 01/27/25 10:34 CT angio head wo/w, CT angio neck with con CLINICAL HISTORY: 65 years-old Male with vertigo, vomiting. Acute vertigo with nausea and vomiting COMPARISON STUDY: Head CT 07/28/2020 TECHNIQUE: Unenhanced axial CT scan of the brain is performed. Subsequently, following the IV administration of 117 cc of Optiray, CT angiogram of the head and neck was performed from the skull base to the vertex. Images are reviewed in the axial, sagittal, and coronal planes. 3-D MIPS images are created and assessed. IV contrast was administered without complication. All measurements were obtained according to NASCET criteria. A dose lowering technique was utilized adhering to the principles of ALARA. CT DOSE: 1191.62 mGy.cm FINDINGS: CT BRAIN: There is no acute intracranial hemorrhage, midline shift, hydrocephalus, intracranial mass, territorial ischemia or abnormal extra-axial collections. No abnormal intra-axial or extra-axial enhancement. Mastoid air cells and middle ear cavities are clear. No calvarial fracture. Minimal mucosal thickening of the ethmoid air cells and frontal sinuses. 2.5 cm focus of polypoid mucosal thickening noted within the right maxillary sinus. CT ANGIOGRAM OF THE HEAD AND NECK: Three-vessel morphology of the thoracic aortic arch. Patent common and internal carotid arteries. There is moderate atherosclerosis of the right carotid bulb without significant stenosis. The internal carotid arteries are patent. The bilateral anterior and middle cerebral arteries are also patent. Vertebral arteries are patent. Diminutive basilar artery with origin of the right posterior cerebral artery. There is moderately diminished flow within the P2 segment left posterior cerebral artery compared to the right without discrete high-grade stenosis identified. There is no aneurysm, high-grade stenosis, or proximal branch occlusion identified. Dural sinuses appear patent. The lung apices appear clear. 8 mm hyperdense left-sided thyroid nodule. Degenerative changes of the cervical spine. IMPRESSION: 1. No acute intracranial abnormality identified. 2. There is diminished flow within the left posterior cerebral artery P2 segment compared to the right without discrete high-grade stenosis or arterial occlusion identified 3. Otherwise unremarkable CTA of the head and neck. ACT 112: Negative or not required by law. The above report was generated using voice recognition software. It may contain grammatical, syntax or spelling errors. Electronically signed by: Darrius Rubi M.D. 01/27/2025 11:53 AM Brain MRI 01/27/25 12:16 MR brain wo con HISTORY: 65 years-old Male P2 segment acute severe vertigo with altered mental status COMPARISON: CTA of the head of same day TECHNIQUE: Multiplanar multisequence MRI of the brain was obtained without IV contrast FINDINGS: No restricted diffusion to suggest an acute or subacute infarct. Midline structures appear unremarkable. Degenerative changes of the imaged cervical spine. No acute intracranial hemorrhage, midline shift, abnormal extra-axial collection, hydrocephalus or intra-axial mass. Minimal involutional changes. There are a few scattered punctate T2/FLAIR hyperintense foci within the white matter likely representing early chronic microvascular ischemic disease. Cerebral venous sinuses and major arterial flow voids appear patent. Skull, orbits and soft tissues are unremarkable. Mastoid air cells are clear. Mild to moderate mucosal thickening of the paranasal sinuses. 2.3 cm right maxillary sinus polyp. IMPRESSION: No acute intracranial abnormality. No acute or subacute infarct. ACT 112: Negative or not required by law. The above report was generated using voice recognition software. It may contain grammatical, syntax or spelling errors. Electronically signed by: Darrius Rubi M.D. 01/27/2025 1:45 PM Ordered Studies 01/27/25 10:34 CTA head wo/w [CT angio head wo/w] Stat CTA neck with con [CT angio neck with con] Stat 01/27/25 12:16 MR brain wo con Stat Hospital Course (1) Benign paroxysmal positional vertigo: Vertigo Likely BPPV Patient had horizontal nystagmus and abnormal head impulse testing (loses focus with head movement) --MRI Brain:No acute intracranial abnormality. No acute or subacute infarct. --Head CTA:No acute intracranial abnormality identified. There is diminished flow within the left posterior cerebral artery P2 segment compared to the right without discrete high-grade stenosis or arterial occlusion identified. Otherwise unremarkable CTA of the head and neck. --Neck CTA:No acute intracranial abnormality identified. There is diminished flow within the left posterior cerebral artery P2 segment compared to the right without discrete high-grade stenosis or arterial occlusion identified. Otherwise unremarkable CTA of the head and neck. --Normal Orthostasis -- Appreciate neurology input --Advised to follow-up with ENT as outpatient --Received IV fluids -- Symptoms resolved --Continue meclizine as needed --Evaluated by PT --Plan to discharge home today (2) Nausea & vomiting: -see above (3) Symptomatic PVCs: Continue metoprolol Sinus bradycardia Likely secondary to metoprolol Currently asymptomatic Monitor Mild leukocytosis Likely reactive No obvious signs of infection Afebrile, Monitor Hypertension Blood pressure slightly variable likely situational Continue losartan, metoprolol Monitor blood pressure Code Status Full Code Disposition Home Total Time Total Time Spent Total Time Spent (In Minutes): 49 minutes Discharge Plan Discharge Items Patient Disposition: Home - Self-Care Reason For Visit: VERTIGO Discharge Diagnosis: Vertigo likely benign paroxysmal positional vertigo Sinus bradycardia Hypertension Condition on Discharge: Good Activity: Per Instructions section Exercise/Sports: Gradually increase as tolerated Non-emergency contact: Primary Care Provider and Specialist Call non-emergency contact if: you have any medication questions, your pain is concerning for you and you have a fever Follow-up/Referrals: Beau Montanez MD [Primary Care Provider] - Diet: Heart Healthy Addtl Attending Provider Instructions: Follow-up with your primary care physician in 1 week Follow-up with your drug safety specialist in 2-3 weeks as recommended -- Your blood pressure was noted to be labile while you are hospitalized. Please monitor your blood pressure regularly at home. Discuss with your primary care physician for further adjustment of medications as needed. Seek immediate medical attention if your symptoms reoccur or worsen Please review medication list provided on discharge for any medication changes as instructed. Please call if you have any questions or problems. You can reach a [facility] hospitalist on duty at [facility] 24 hours a day by calling [phone] Pending Studies at Discharge: No Stand-Alone Forms: My [facility], Smoking Cessation Medications and DC Order Prescriptions: New prednisone 20 mg tablet 40 mg PO DAILY 4 Days Qty: 8 0RF ondansetron 4 mg tablet,disintegrating 4 mg PO Q6H PRN (Reason: nausea and vomiting) Qty: 20 0RF meclizine 25 mg tablet 25 mg PO TID PRN (Reason: vertigo) Qty: 45 0RF Continued celecoxib [Celebrex] 200 mg capsule 200 mg PO DAILY PRN (Reason: Pain) metoprolol succinate 25 mg tablet extended release 24 hr 12.5 mg PO BID Rx Instructions: 1/2 tablet dose losartan 25 mg tablet 25 mg PO QAM Discharge Orders: Discharge Order (Routine); Ordered 01/28/25 Ordered By: Ferdinand Mckinnon Admission Data Admit Date/Time: 01/27/25 15:45 Attending Provider: Ferdinand Mckinnon Admit Provider: Олег Russo Primary Care Provider: Beau Montanez Other Providers: Олег Russo; Alan Martinez Other Interventions: Discharge Summary Assessment (RN) Last Done: 01/28/25 12:22
[2025-01-31 18:18] LABS: Babesia microti IgG <1:64 titer (<1:64)
[2025-02-01 07:42] LABS: Babesia microti DNA Not Detected (Not Detected)
== END 2025-01-28 13:05 | disposition home or self-care (01) ==
LOC: ED 10:07 → 2W 10:07 → SUATTDRO 15:45 → 2W 17:15